=== PATIENT | female | born 2000 | race Caucasian/White ===

== ENCOUNTER 2024-10-26 20:33 | Outpatient (CLI) | payer OTHER, SELFPAY ==
--- OUTSIDE RECORDS SUMMARY | 2024-10-26 20:58 | XMS_ITS | Data Portability ---
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 Discussed plan. [email or web address] Not available 10/17/2024 09:34:18 Plan of Treatment Reminders Order Date Submit Date Provider Last Modified By Organization Details Last Modified Time Details Appointments OB ROUTINE 2024 09:00A Krishna Romeo CNM Not available Not available Not available Lab None recorded. Referral None recorded. Procedures None recorded. Surgeries None recorded. Imaging US, obstetric , follow-up 2024 025 [email or web address] [place], [address], [place], [address], 09/24/2024 19:02:19 US, obstetric , 2nd or 3rd trimester 2024 025 [email or web address] [address], [address], [place], [address], 08/26/2024 23:00:35 Medication Orders None recorded. Patient TargetsNo targets recorded. Patient InstructionsNo instructions recorded. Reason for Referral None Reported. Results Created Date Observation Date Name Description Value Unit Range Abnormal Flag Note LastModifiedBy Organization Detail LastModifiedTime 08/05/1908/05/2024 CULTU RE: URINE result report SEE RESULT S BELOW abnormal Test: Cultu re: Urine Speci men Sourc e: Urine - Clean Catch Speci men Type: Urine Speci men Date: 1656 Resul t Date: 719 Resul t Statu s: Final resul t Rossor mal: Yes Resul victorina Lab: [facility] [address] [facility] [address] Tel: [phone] CULTU RE ----- ----- ----- --- >100, 000 CFU/m l Klebs iella pneum oniae (Abno rmal) SUSCE PTIBI LITY ----- ----- ----- --- Klebs iella pneum oniae METHO D FRANK ----- ----- ----- ----- ----- ---- ----- ----- ----- ----- ----- - AMPIC ILLIN /SULB ACTAM <=8 ug/mL Susce ptibl e AZTRE ONAM <=4 ug/mL Susce ptibl e CEFAZ DANIEL <=2 ug/mL Susce ptibl e CEFEP BENY <=2 ug/mL Susce ptibl e CEFTA ZIDIM E <=1 ug/mL Susce ptibl e CEFTR IAXON E <=1 ug/mL Susce ptibl e CIPRO FLOXA ELISE <=0.2 5 ug/mL Susce ptibl e GENTA MICIN <=2 ug/mL Susce ptibl e LEVOF LOXAC IN <=0.5 ug/mL Susce ptibl e MEROP ENEM <=1 ug/mL Susce ptibl e NITRO FURAN TOIN 64 ug/mL Inter media te PIPER ACILL IN/TA ZOBAC GARVIN <=8 ug/mL Susce ptibl e TOBRA MYCIN <=2 ug/mL Susce ptibl e TRIME THOPR IM/MCKEON LFAME THOXA ZOLE <=2 ug/mL Susce ptibl e Not Available [facility] (Lab) [address] [facility], [place], [address], 08/08/2024 08:24:37 10/18/19 25 10/17/2024 HEMOG LOBIN (HGB) HGB 10.5 g/dL (based on docume nted legal sex) 11.6-1 5.4 low Not Available [facility] (Lab) [address] [facility], [place], [address], 10/18/2024 13:46:06 10/18/19 25 10/17/2024 HEMAT OCRIT (HCT) HCT 33.6 % (based on docume nted legal sex) 34.0-4 5.0 low Not Available [facility] (Lab) [address] [facility], [place], [address], 10/18/2024 13:46:06 10/18/19 25 10/17/2024 GTT - GESTA MARJAN L SCREHumberto N, ACOG OB glucose, 1 hour screen 101 mg/dL 70-135 Not Available [facility] (Lab) [address] [facility], [place], [address], 10/18/2024 13:46:07 10/18/19 25 10/17/2024 HIV 1/2 ANTIG EN/AN TIBOD Y, REFLE X CONFI RMATI ON HIV antigen/anti body Nonrea ctive nonrea ctive HIV-1 antig en and HIV-1 /HIV- 2 antib odies were not detec shlomo. No labor atory evide nce of HIV infec tion. Not Available [facility] (Lab) [address] [facility], [place], [address], 10/18/2024 13:46:07 10/18/19 25 10/17/2024 RPR SCREE N, REFLE X TITER /CONF IRMAT ION RPR qualitative Nonrea ctive nonrea ctive Not Available [facility] (Lab) [address] [facility], [place], [address], 10/18/2024 13:46:07 08/26/19 25 08/26/2024 US, obste tric, 2nd or 3rd trime ster No observ ation record ed. [email or web address] [place] [address], [place], [address], 08/26/2024 18:25:42 08/26/19 25 08/26/2024 US, obste tric, follo w-up No observ ation record ed. [email or web address] [address], [place], [address], 08/28/2024 11:21:16 09/25/19 25 09/24/2024 US, obste tric, follo w-up No observ ation record ed. [email or web address] [place] [address], [place], [address], 09/24/2024 18:23:30 09/25/1909/24/2024 US, obste tric, follo w-up No observ ation record ed. [email or web address] [address], [place], [address], 09/24/2024 22:23:34 Result Notes None recorded. Problems Name Problem SNOMED Code Status Onset Date Resolution Date Notes Provider Name and Address Organization Details Recorded Time [id number] Active 025 Yoko Ramírez [facility] 09:22:20 Problem Notes None recorded. Procedures Surgical History Date Name Laterality Status Provider Name and Address Organization Details Recorded Time 0 Appendectomy completed Yoko Ramírez [facility] 07/03/2024 15:13:03 Imaging Results Imaging Date Name Status LastModified by Organ atecu health Details LastModified Time 08/26/2024 US, obstetric, 2nd or 3rd trimester completed [address], [place], [address], 08/26/2024 18:25:42 08/26/2024 US, obstetric, follow-up completed [email or web address] [address], [place], [address], 08/28/2024 11:21:16 09/24/2024 US, obstetric, follow-up completed [email or web address] [place] [address], [place], [address], 09/24/2024 18:23:30 09/24/2024 US, obstetric, follow-up completed [email or web address] [address], [place], [address], 09/24/2024 22:23:34 Procedure Notes None recorded. Medical Equipment None Reported. Allergies No known drug allergies Medications Name Sig Start Date Stop Date Status Note LastModified by Organization Details LastModified Time amoxicillin 500 mg capsule TAKE 1 CAPSULE BY MOUTH EVERY 6 HOURS active Not Available Not Available No t Available cephalexin 500 mg capsule TAKE 1 CAPSULE BY MOUTH EVERY 6 HOURS FOR 7 DAYS 08/26 completed Not Available Not Available Not Available cyclobenzapr ine 5 mg tablet TAKE 1 TABLET BY MOUTH THREE TIMES DAILY NEEDED active Not Available Not Available No t Available Vitals Date Recorded Body height Body mass index (BMI) Body weight Systolic blood pressure Diastolic blood pressure Provider Name and Address Organization Details Last Updated DateTime 08/26/2024 160.02 cm 26.7 kg/m2 59888.45 g 127 mm[Hg] 85 mm[Hg] Yoko Ramírez [facility] 18:20:41 Date Recorded Body height Body mass index (BMI) Body weight Systolic blood pressure Diastolic blood pressure Provider Name and Address Organization Details Last Updated DateTime 09/24/2024 160.02 cm 27.4 kg/m2 79402.1 g 126 mm[Hg] 78 mm[Hg] JOSEPHINE Olsen [facility] 17:22:20 Date Recorded Body weight Systolic blood pressure Diastolic blood pressure Provider Name and Address Organization Details Last Updated DateTime 10/17/2024 27601.5563 1 g 121 mm[Hg] 73 mm[Hg] Nayeli Vaughn [facility] 10/17/2024 09:34:54 Social History Question Answer Notes LastModified by Organizat ion Details LastModified Time Do You Have An Advance Directive? No [email or web address] Information not available 07/03/2024 What Is Your Level Of Alcohol Consumption? None Information not available 07/03/2024 Are You Blind Or Do You Have Difficulty Seeing? No Information not available 07/03/2024 What Is Your Level Of Caffeine Consumption? Occasional [email or web address] Information not available 07/03/2024 How Much Tobacco Do You Chew? None [email or web address] Information not available 07/03/2024 In The 14 Days Before Symptom Onset, Have You Had Close Contact With A Laboratory-confir med COVID-19 While That Case Was Ill? No [email or web address] Information not available 07/03/2024 In The 14 Days Before Symptom Onset, Have You Had Close Contact With A Person Who Is Under Investigation For COVID-19 While That Person Was Ill? No [email or web address] Information not available 07/03/2024 Have You Been To An Area Known To Be High Risk For COVID-19? No [email or web address] Information not available 07/03/2024 Are You Deaf Or Do You Have Serious Difficulty Hearing? No [email or web address] Information not available 07/03/2024 What Is The Highest Grade Or Level Of School You Have Completed Or The Highest Degree You Have Received? 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 No [email or web address] Information not available 07/03/2024 Do You Use Protection During Sex? No [email or web address] Information not available 07/03/2024 Do You Use Your Seat Belt Or Car Seat Routinely? Yes Information not available 07/03/2024 Do You Have Smoke And Carbon Monoxide Detectors In Your Home? Yes [email or web address] Information not available 07/03/2024 How Much Tobacco Do You Smoke? No [email or web address] Information not available 07/03/2024 Do You Feel Stressed (tense, Restless, Nervous, Or Anxious, Or Unable To Sleep At Night)? [id number] [email or web address] Information not available 07/03/2024 Do You Use Any Illicit Or Recreational Drugs? No [email or web address] Information not available 07/03/2024 Do You Use Sunscreen Routinely? Yes [email or web address] Information not available 07/03/2024 Have You Used IV Drugs? No [email or web address] Information not available 07/03/2024 Sex: Unknown Functional Status Question Answer Note LastModified by Organizat ion Details LastModified Time Are you able to walk? YESWOREST [email or web address] Information not available 07/03/2024 What is your exercise level? Occasional [email or web address] Information not available 07/03/2024 Mental Status None recorded. Family History Nothing Reported. Medical History No medical history recorded. Gynecological History Statement/Question Response Date of LMP 03/26/2024 Sexually Active? Y On BCP's at Conception? N STIs/STDs N Date of Last Pap Smear Sexual Problems? N Current Control Method LMP Definite Obstetrics History GPAL:G 1 P 0 0 0 0 Past Encounters Encounter ID Performer Location Encounter Start Date Encounter Closed Date Diagnosis/Indication Diagnosis SNOMED-CT Code Diagnosis ICD10 Code Diagnosis Note [id number] Erica Maldonadoortega [place] [address] [address] 07/03/2024 14:12:04 07/03/2024 15:09:33 screening 421542730 Z36.87 Z3A.14 [id number] REY PADRON MD [place] [address] [address] 07/03/2024 14:12:40 07/03/2024 16:15:50 Brief loss of consciousness 93194971 R55 - LOC episode in October, unclear trigger- HOlter and EKG normal per patient, she was told she may have POTS- has not had cards eval yet, referral resent as she is having more dizziness episodes now test positive 089424703 Z32.01 1. Exam today within normal limits.2. Ultrasound today confirms GA and viability. EDC . GC/Clamydi a testing done: will f/u as indicated. 4. ACOG guidelines and plan of care for reviewed with patient. All questions answered.5 . Return to office at 12 weeks for new OB visit6. Will need new OB labs at next visit.7. Genetic screening: desires. screening 2437 27937 Z36.0 Genetic in vestigation procedure 10945121 Z31.430 [id number] Erica Costa [place] [address],[place] [address] 07/22/2024 17:13:39 07/22/2024 17:34:11 [id number] REY PADRON MD [place] [address] [address] 07/22/2024 17:14:17 07/31/2024 13:50:57 Routine care 195382848 Z34.01 [id number] REY PADRON MD [place] [address],[place] [address] 08/05/2024 11:27:25 08/05/2024 12:52:33 Right flank pain 411394303 R10.9 - ddx: MSK vs UTI/pyelo- mild CVA tenderness - urine culture sent- flexeril and tylenol for pain relief; keflex for empiric UTI coverage [id number] [facility] [address],[place] [address] 08/26/2024 17:12:37 08/27/2024 06:02:25 screening for malformation 716243603 Z36.3 Z3A.21 [id number] REY PADRON MD [place] [address],[place] [address] 08/26/2024 17:12:58 08/27/2024 04:08:08 Routine care 604286338 Z34.01 [id number] [facility] [address],[place] [address] 09/24/2024 16:38:32 09/24/2024 17:19:30 screening 026403825 Z36.2 Z3A.26 [id number] REY PADRON MD [place] [address],[place] [address] 09/24/2024 16:39:33 09/25/2024 08:37:55 Routine care 591478431 Z34.01 [id number] Bryon Mensah MD [place] [address] [address] 10/17/2024 09:13:00 10/17/2024 09:59:40 Third trimester 42815572 Z34.03 Health Concerns Section Related Observation LastModified by Organization Detai ls LastModified Time None Recorded Concern Status LastModified by Organization Details LastModified Time None Recorded Advance Directives Directive N: Payers Encounter Date Sequence Insurance Name Policy Number Policy Reid Covered Member ID Reid Member ID Guarantor Name 08/26/2024 1 [facility] [id number] Supriya Marcano [id number] Supriya Marcano 08/26/2024 1 [facility] [id number] Supriya Marcano [id number] Supriya Marcano 09/24/2024 1 [facility] [id number] Supriya Marcano [id number] Supriya Marcano 09/24/2024 1 [facility] [id number] Supriya Marcano [id number] Supriya Marcano 10/17/[address] [place] [address] [id number] Supriya Marcano [id number] Supriya Marcano OBGyn Episode Ob Episode Information Episode Created Date Number of Fetuses Patient Bloodtype Patient rh Status Prepregnancy Weight lbs Domestic Partner Domestic Partner Phone Father Name 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 07/23/19 1 AB Positive OPEN Fetus Data First Name Last Name Admitted to NICU Weight (g) Sex Living Outcome Pediatric Complications Fetus ID Race Codes Race Delivery Type [id number] Elias Calculation Initial Elias Date Initial Exam Date Initial Exam Provider Initial Ultrasound Date Last Menstrual Period Date Ultra Sound Weeks Gestation 12/31/2024 07/23/2024 07/03/2024 03/26/2024 14 Eighteen To Twenty Week Elias Update Ultra Sound Date Fundal Height At Umbil Quickening Date Ultra Sound Latest Weeks Gestation Final Elias Confirmed By Final Elias Confirmed Date Final Elias Date Ultra Sound Latest Days Gestation 0 [email or web address] 08/26/2024 01/01/20 0 Pre- Flowsheet Flowsheet Date 08/05/2024 Stone Score Blood Edema Fundus Height Fundus Units Glucose Ketones Leukocytes Nitrite Labor Signs Protein Cervic Dilation Cervic Effacement Cervic Station Type Weight in lbs Pre/Post Dialysis Refused Weight 142.082319669865 BP Diastolic BP Location Tested BP Systolic BP Type 77 L arm 127 sitting Fetus Heart Rate Present Fetus Movement Comments Problem visit, right sided b ack pain. Flowsheet Date 08/26/2024 Stone Score Blood Edema Fundus Height Fundus Units Glucose Ketones Leukocytes Nitrite Labor Signs Protein Cervic Dilation Cervic Effacement Cervic Station Type Weight in lbs Pre/Post Dialysis Refused BP Diastolic BP Location Tested BP Systolic BP Type Fetus Heart Rate Present Fetus Movement Comments Flowsheet Date 08/26/2024 Stone Score Blood Edema Fundus Height Fundus Units Glucose Ketones Leukocytes Nitrite Labor Signs Protein Cervic Dilation Cervic Effacement Cervic Station neg none Type Weight in lbs Pre/Post Dialysis Refused Weight 151.560667225708 BP Diastolic BP Location Tested BP Systolic BP Type 85 L arm 127 sitting Fetus Heart Rate Present A Present Fetus Movement A Yes Comments Good movement. No cram ping or bleeding. UTI symptoms resolved after abx. Will send DAVID next visit. Anatomy incomplete, need head/face views. Will repeat in 4 weeks. EFW 53%. RTC 4 weeks. Flowsheet Date 09/24/2024 Stone Score Blood Edema Fundus Height Fundus Units Glucose Ketones Leukocytes Nitrite Labor Signs Protein Cervic Dilation Cervic Effacement Cervic Station Type Weight in lbs Pre/Post Dialysis Refused BP Diastolic BP Location Tested BP Systolic BP Type Fetus Heart Rate Present Fetus Movement Comments Flowsheet Date 09/24/2024 Stone Score Blood Edema Fundus Height Fundus Units Glucose Ketones Leukocytes Nitrite Labor Signs Protein Cervic Dilation Cervic Effacement Cervic Station neg none Type Weight in lbs Pre/Post Dialysis Refused Weight 154.834841189779 BP Diastolic BP Location Tested BP Systolic BP Type 78 126 sitting Fetus Heart Rate Present A Present Fetus Movement A Yes Comments Doing well, good movem ent. Anatomy complete and normal today, EFW 61%. Discussed resources and pumping. RTC 2 weeks, discussed GCT and labs for next visit. Flowsheet Date 10/17/2024 Stone Score Blood Edema Fundus Height Fundus Units Glucose Ketones Leukocytes Nitrite Labor Signs Protein Cervic Dilation Cervic Effacement Cervic Station 29 cm Type Weight in lbs Pre/Post Dialysis Refused 163.659725183590 BP Diastolic BP Location Tested BP Systolic BP Type 73 L arm 121 sitting Fetus Heart Rate Present A 145 Present Fetus Movement A Yes Comments no complaints, no problems, routine care, no contractions, no vaginal bleeding, no loss of fluid, no cramping Menstrual History Last Menstrual Date Menses Monthly On Bcp Conception Prior Menses Frequency Hcg Plus Date Menarche Onset Age 0903/26/2024 Delivery Information Delivery Date Delivery Type Labor Anesthesia Weeks Gestation Incision Type Labor Labor Length Hrs Delivered By Post Complications Tubal Sterilization Discharge Date Comments Discharge Information Feeding Method Contraceptive Method Maternal HG B and HCT Levels
[2024-10-26 21:12] LABS: Glucose Point of Care 103 mg/dl (65-105)
[2024-10-26 21:15] VITALS: BP 127/74; PULSE 77
[2024-10-26 21:30] VITALS: BP 124/73; PULSE 80
[2024-10-26 21:55] LABS: Add Urine Microscopic? NO; Appearance Urine Clear (Clear); Bilirubin Urine Negative (Negative); Blood Urine Negative (Negative); Color Urine Yellow (Yellow); Glucose Urine UA Negative (Negative); Ketones Urine Negative (Negative); Leukocyte Esterase Ur Negative LEU/UL (Negative); Nitrate Urine Negative (Negative); Protein Urine Negative (Negative); Specific Grav Ur 1.005 (1.001-1.035); Urobilinogen Urine 0.2 mg/dL (<2.0); pH Urine 6.5 (5.0-9.0)
[2024-10-26 22:00] VITALS: BP 126/66; PULSE 79
[2024-10-26 22:13] LABS: Hematocrit 29.2 % (37.0-47.0); Hemoglobin 9.7 g/dL (12.0-15.0); Mean Corpuscular HGB Conc 33.2 g/dl (32-36); Mean Corpuscular Volume 93.3 fl (80-100); Platelet Count Result 174 k/mm3 (150-375); Red Blood Count 3.13 M/mm3 (4.2-5.4); White Blood Count 10.9 K/mm3 (4.5-10.0)
[2024-10-26 22:25] LABS: Alanine Aminotransferase 17 U/L (6-35); Albumin Level 3.6 g/dL (3.5-5.1); Alkaline Phosphatase 70 U/L (38-126); Anion Gap 7 mmol/L (4-12); Aspartate Amino Transferase 20 U/L (14-36); Bilirubin,Total 0.2 mg/dL (0.2-1.3); Blood Urea Nitrogen 8 mg/dL (7-17); Calcium 8.7 mg/dL (8.4-10.2); Carbon Dioxide 22 mmol/L (22-30); Chloride 106 mmol/L (98-107); Estimated Glomerular Filt Rate > 60; Glucose 102 mg/dL (65-110); Potassium 3.5 mmol/L (3.4-5.0); Sodium 135 mmol/L (137-145)
[2024-10-26 22:30] VITALS: BP 117/61; PULSE 72
== END 2024-10-26 22:40 | disposition home or self-care (01) ==
LOC: ANHOBOP 20:56 → ANHLDR 21:03
PROVIDERS: Advanced Practice Midwife; Visit Provider Obstetrics & Gynecology
DX: O36.8190 Decreased fetal movements, unspecified trimester, not applicable or unspecified (principal); Z3A.00 Weeks of gestation of pregnancy not specified
CPT/HCPCS: 36415; 59025; 80053; 81003; 82948; 85027

== ENCOUNTER 2024-10-31 09:21 | Outpatient (CLI) | payer OTHER, SELFPAY ==
[2024-10-31] VITALS (14 sets, daily range): BP systolic 112–127; BP diastolic 56–79; PULSE 63–102; O2SAT 99–100
[2024-10-31 09:49] LABS: Basophils Percent Auto 0.3 % (0.2-1.2); Eosinophils Absolute Auto 0.1 K/mm3 (0-0.3); Eosinophils Percent Auto 1.2 % (0-4.4); Hematocrit 33.9 % (37.0-47.0); Hemoglobin 11.1 g/dL (12.0-15.0); Immature Granulocyte Absolute 0.07 K/mm3 (0.00-0.031); Immature Granulocyte Percent A 0.7 % (0-0.5); Lymphocytes Absolute Auto 1.42 K/mm3 (0.9-3.2); Lymphocytes Percent Auto 13.3 % (18.3-44.2); Mean Corpuscular HGB Conc 32.7 g/dl (32-36); Mean Corpuscular Hemoglobin 30.6 pg (26-34); Mean Corpuscular Volume 93.4 fl (80-100); Mean Platelet Volume 10.5 fl (7.4-10.4); Monocytes Absolute Auto 0.8 K/mm3 (0.1-0.6); Neutrophils Absolute Auto 8.2 K/mm3 (1.3-6.7); Neutrophils Percent Auto 77.5 % (45.5-73.1); Platelet Count Result 178 k/mm3 (150-375); Red Blood Count 3.63 M/mm3 (4.2-5.4); Red Cell Distribution Width 12.1 % (11.5-14.5); White Blood Count 10.6 K/mm3 (4.5-10.0)
[2024-10-31 10:00] LABS: Add Urine Microscopic? NO; Appearance Urine Clear (Clear); Bilirubin Urine Negative (Negative); Blood Urine Negative (Negative); Color Urine Yellow (Yellow); Glucose Urine UA Negative (Negative); Ketones Urine Negative (Negative); Leukocyte Esterase Ur Negative LEU/UL (Negative); Nitrate Urine Negative (Negative); Protein Urine Negative (Negative); Specific Grav Ur 1.007 (1.001-1.035); Urobilinogen Urine 0.2 mg/dL (<2.0)
--- NOTE | 2024-10-31 10:14 | PC.NURSE ---
1010- Spoke with David Romeo CNM, discussed contractions. Orders for one dose of terbutaline and one dose of fioricet for her headache.
[2024-10-31] MEDS: TERBUTALINE SULFATE 1 MG/ML VIAL 0.25 MG SUB-Q (10:41)
[2024-10-31] MEDS: ACETAMINOPHEN/BUTALBITAL/CAFFEINE 325-50-40 MG TABLET (FIORICET) 1 TAB PO (10:42)
[2024-10-31 10:47] LABS: Creatinine Urine 32.9 mg/dL; Total Protein Urine Random 11 mg/dL; Ur Ttl Prot Creatinine Ratio 0.33 mg/mg (0-0.20)
[2024-10-31 11:07] LABS: Blood Urea Nitrogen 4 mg/dL (7-17); Estimated Glomerular Filt Rate > 60; Sodium 134 mmol/L (137-145)
[2024-10-31 11:22] LABS: Anion Gap 10 mmol/L (4-12); Carbon Dioxide 17 mmol/L (22-30); Chloride 107 mmol/L (98-107); Potassium 4.1 mmol/L (3.4-5.0)
[2024-10-31 11:23] LABS: Alanine Aminotransferase 19 U/L (6-35); Albumin Level 3.8 g/dL (3.5-5.1); Alkaline Phosphatase 80 U/L (38-126); Aspartate Amino Transferase 27 U/L (14-36); Bilirubin,Total 0.3 mg/dL (0.2-1.3); Calcium 8.8 mg/dL (8.4-10.2); Glucose 79 mg/dL (65-110); Uric Acid 3.2 mg/dL (2.5-7.5)
--- OUTSIDE RECORDS SUMMARY | 2024-11-01 11:32 | XMS_ITS | Continuity of Care Document ---
Author Organization [facility] Address [address] [place] [address] Care Team Providers Care Junior Financial Analyst Name Role Phone NOAH NARAYANAN Primary Care Provider [phone] Assessment Encounter Date Assessment Date Assessment LastModified by Organization Details LastModified Time 10/31/2024 10/31/2024 Patient is __31_weeks . Discussed plan. Not available 10/31/2024 10:01:21 Plan of Treatment Reminders Order Date Submit Date Provider Last Modified By Organization Details Last Modified Time Details Appointments None record ed. Lab None record ed. Referral None record ed. Procedures None record ed. Surgeries None record ed. Imaging None record ed. Medication Orders None record ed. Patient TargetsNo targets recorded. Patient InstructionsNo instructions recorded. Reason for Referral None Reported. Results Created Date Observation Date Name Description Value Unit Range Abnormal Flag Note LastModifiedBy Organization Detail LastModifiedTime 08/26/1908/26/2024 US, obste tric, 2nd or 3rd trime ster No observ ation record ed. [email or web address] [facility] [address], [place], [address], 08/26/2024 18:25:42 08/26/19 25 08/26/2024 US, obste tric, follo w-up No observ ation record ed. [email or web address] [address], [place], [address], 08/28/2024 11:21:16 09/25/19 25 09/24/2024 US, obste tric, follo w-up No observ ation record ed. [email or web address] [facility] [address], [place], [address], 09/24/2024 18:23:30 09/25/19 25 09/24/2024 US, obste tric, follo w-up No observ ation record ed. [email or web address] [address] [address], [place], [address], 09/24/2024 22:23:34 10/28/19 25 10/26/2024 non-s tress test No observ ation record ed. [address], [place], [address], 10/31/2024 14:53:20 11/01/19 25 10/31/2024 imagi ng/di agnos tic resul t No observ ation record ed. [place] [id number] [facility] [address], [place], [address], 11/01/2024 12:13:23 Result Notes None recorded. Problems Name Problem SNOMED Code Status Onset Date Resolution Date Notes Provider Name and Address Organization Details Recorded Time 24438620 Active 025 Yoko Ramírez [facility] 5 09:22:20 Anemia 312033965 Active 025 slo fe bid Prerna Khadar [facility] 5 10:16:41 Problem Notes None recorded. Procedures Surgical History Date Name Laterality Status Provider Name and Address Organization Details Recorded Time 0 Appendectomy completed Yoko Ramírez [facility] 07/03/2024 15:13:03 Imaging Results None recorded. Procedure Notes None recorded. Medical Equipment None Reported. Allergies No known drug allergies Medications Name Sig Start Date Stop Date Status Note LastModified by Organization Details LastModified Time amoxicillin 500 mg capsule TAKE 1 CAPSULE BY MOUTH EVERY 6 HOURS 10/31 completed Not Available Not Available Not Available cephalexin 500 mg capsule TAKE 1 CAPSULE BY MOUTH EVERY 6 HOURS FOR 7 DAYS 08/26 completed Not Available Not Available Not Available cyclobenzapr ine 5 mg tablet TAKE 1 TABLET BY MOUTH THREE TIMES DAILY NEEDED 10/31 completed Not Available Not Available Not Available Vitals Date Recorded Body mass index (BMI) Body weight Body height Systolic blood pressure Diastolic blood pressure Provider Name and Address Organization Details Last Updated DateTime 10/31/2024 29.2 kg/m2 69588.74 g 160.02 cm 143 mm[Hg] 87 mm[Hg] Becky Scruggs [facility] 09:58:25 Social History Question Answer Notes LastModified by Organizat ion Details LastModified Time Tobacco Smoking Status Never Smoker Becky Scruggs [facility] 10/31/2024 10:09:34 Do You Have An Advance Directive? No [email or web address] Information not available 07/03/2024 What Is Your Level Of Alcohol Consumption? None [email or web address] Information not available 07/03/2024 If You Are , What Was Your Level Of Alcohol Consumption Prior To ? Occasional [email or web address] Information not available 10/31/2024 Are You Blind Or Do You Have Difficulty Seeing? No [email or web address] Information not available 07/03/2024 What Is Your Level Of Caffeine Consumption? Occasional [email or web address] Information not available 07/03/2024 How Much Tobacco Do You Chew? None [email or web address] Information not available 07/03/2024 In The 14 Days Before Symptom Onset, Have You Had Close Contact With A Laboratory-confir med COVID-19 While That Case Was Ill? No [email or web address] Information not available 07/03/2024 In The 14 Days Before Symptom Onset, Have You Had Close Contact With A Person Who Is Under Investigation For COVID-19 While That Person Was Ill? No Information not available 07/03/2024 Have You Been To An Area Known To Be High Risk For COVID-19? No [email or web address] Information not available 07/03/2024 Are You Deaf Or Do You Have Serious Difficulty Hearing? No [email or web address] Information not available 07/03/2024 What Is The Highest Grade Or Level Of School You Have Completed Or The Highest Degree You Have Received? 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 No [email or web address] Information not available 07/03/2024 Do You Use Protection During Sex? No [email or web address] Information not available 07/03/2024 Do You Use Your Seat Belt Or Car Seat Routinely? Yes [email or web address] Information not available 07/03/2024 Do You Have Smoke And Carbon Monoxide Detectors In Your Home? Yes Information not available 07/03/2024 How Much Tobacco Do You Smoke? No [email or web address] Information not available 07/03/2024 Do You Feel Stressed (tense, Restless, Nervous, Or Anxious, Or Unable To Sleep At Night)? [id number] [email or web address] Information not available 07/03/2024 Do You Use Any Illicit Or Recreational Drugs? No [email or web address] Information not available 07/03/2024 Do You Use Sunscreen Routinely? Yes [email or web address] Information not available 07/03/2024 Have You Used IV Drugs? No [email or web address] Information not available 07/03/2024 Sex: Unknown Functional Status Question Answer Note LastModified by Organizat ion Details LastModified Time Do you have difficulty walking or climbing stairs? No [email or web address] Information not available 10/31/2024 Are you able to walk? YESWOREST [email or web address] Information not available 07/03/2024 Are you able to care for yourself? Yes [email or web address] Information not available 10/31/2024 Do you have difficulty dressing or bathing? No Information not available 10/31/2024 What is your exercise level? Occasional [email or web address] Information not available 07/03/2024 Mental Status None recorded. Family History Nothing Reported. Medical History Condition Response Allergies (Food, seasonal, environmental ) N Other N Breast Cancer N Drug/Latex Allergies/Reactions N Blood Transfusion N Dermatologic Disorders N Lung Disease N Defects or Inherited Disease N Breast Problem N Gestational Diabetes N Hematologic disorders N Anesthesia Complications N History of STI N Deep Vein Thrombosis N Polycystic ovary syndrome N Anxiety Disorder N Autoimmune disease N Arthritis N Infertility N Polyps N Acid Reflux (GERD) N History of abnormal pap N Cancer N Stroke N Varicosities N Neurologic/Epilepsy N Endometriosis N High Cholesterol N Headaches N Fibromyalgia N Kidney Disease N Heart Problems N Kidney or Bladder Problems N Thyroid Problems N GI Problems N Eating Disorder N Anemia Y Art (IVF or FET) N Psychiatric Illness N Ovarian Cancer N Diabetes N Pulmonary (TB, Asthma) N Hepatitis/Liver Disease N No Past Medical History N Eczema N Urinary Tract Infection N Abuse/Domestic Violence N Asthma N Trauma/Violence N Depression/ depression N Heart Disease N Pre-Eclampsia N Hypertension N Osteoporosis N Thrombophilias N Gynecological History Statement/Question Response Date of Last Mammogram Date of Last Colonoscopy Date of LMP 03/26/2024 Sexually Active? Y On BCP's at Conception? N Date of DEXA bone scan STIs/STDs N Date of Last Pap Smear Sexual Problems? N Current Control Method LMP Definite Obstetrics History GPAL:G 1 P 0 0 0 0 Type Value Living 0 Total 1 Past Encounters Encounter ID Performer Location Encounter Start Date Encounter Closed Date Diagnosis/Indication Diagnosis SNOMED-CT Code Diagnosis ICD10 Code Diagnosis Note [id number] Bryon Mensah MD [facility] [address] [address] 10/17/2024 09:13:00 10/17/2024 09:59:40 Third trimester 09938651 Z34.03 [id number] [facility] [address] [address] 10/31/2024 09:50:16 10/31/2024 10:12:01 Gestation period, 31 weeks 39613077 Z3A.31 Health Concerns Section Related Observation LastModified by Organization Detai ls LastModified Time None Recorded Concern Status LastModified by Organization Details LastModified Time None Recorded Payers Encounter Date Sequence Insurance Name Policy Number Policy Reid Covered Member ID Reid Member ID Guarantor Name 10/31/2024 1 [facility] [id number] Supriya Marcano [id number] Supriya Marcano OBGyn Episode Ob Episode Information Episode Created Date Number of Fetuses Patient Bloodtype Patient rh Status Prepregnancy Weight lbs Domestic Partner Domestic Partner Phone Father Name National Account Executive Status 07/23/19 25 1 AB Positive OPEN Fetus Data First Name Last Name Admitted to NICU Weight (g) Sex Living Outcome Pediatric Complications Fetus ID Race Codes Race Delivery Type [id number] Problems Problem Notes Problem Name Start Date End Date Resolution Snomed Code Not e Anemia 10/28/2024 [id number] slo fe bi d Elias Calculation Initial Elias Date Initial Exam [...] Date Ultra Sound Latest Days Gestation 0 [email or web address] 08/26/2024 01/01/20 25 0 Pre- Flowsheet Flowsheet Date 08/05/2024 Stone Score Blood Edema Fundus Height Fundus Units Glucose Ketones Leukocytes Nitrite Labor Signs Protein Cervic Dilation Cervic Effacement Cervic Station Type Weight in lbs Pre/Post Dialysis Refused Weight 142.094302045776 BP Diastolic BP Location Tested BP Systolic [...] Weight in lbs Pre/Post Dialysis Refused Weight 151.596497171650 BP Diastolic BP Location Tested BP Systolic [...] Weight in lbs Pre/Post Dialysis Refused Weight 154.011572812160 BP Diastolic BP Location Tested BP Systolic [...] Type Weight in lbs Pre/Post Dialysis Refused 163.568523228089 BP Diastolic BP Location Tested BP Systolic BP Type 73 L arm 121 sitting Fetus Heart Rate Present A 145 Present Fetus Movement A Yes Comments no complaints, no problems, routine care, no contractions, no vaginal bleeding, no loss of fluid, no cramping Flowsheet Date 10/31/2024 Stone Score Blood Edema Fundus Height Fundus Units Glucose Ketones Leukocytes Nitrite Labor Signs Protein Cervic Dilation Cervic Effacement Cervic Station neg trace Type Weight in lbs Pre/Post Dialysis Refused Weight 165.756505274215 BP Diastolic BP Location Tested BP Systolic BP Type 87 143 Fetus Heart Rate Present Fetus Movement A Yes Comments Patient is having lightheade d, dizziness, contractions, headache, swelling and nausea. to ld for evaluation, +FM , sign up for preadmit Menstrual History Last Menstrual Date Menses Monthly [...]
--- OUTSIDE RECORDS SUMMARY | 2024-11-01 11:32 | XMS_ITS | Data Portability ---
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 Discussed plan. [email or web address] Not available 10/17/2024 09:34:18 10/31/2024 10/31/2024 Patient is __31_weeks . Discussed plan. [email or web address] Not available 10/31/2024 10:01:21 Plan of Treatment Reminders Order Date Submit Date Provider Last Modified By Organization Details Last Modified Time Details Appointments None recorded. Lab None recorded. Referral None recorded. Procedures None recorded. Surgeries None recorded. Imaging US, obstetric, follow-up 2024 025 [email or web address] [place], [place], [address], 19:02:19 US, obstetric, 2nd or 3rd trimester 2024 025 [email or web address] [facility] [place], [address], [place], [address], 23:00:35 Medication Orders None recorded. Patient TargetsNo [...] Speci men Date: 1656 Resul t Date: 0720 Resul t Statu s: Final resul t Abnor mal: Yes Resul victorina Lab: [facility] [address] [facility] [address] Tel: CULTU RE ----- ----- ----- --- >100, [...] <=2 ug/mL Susce ptibl e Not Available [facility] (Lab) [address], [place], [address], 08/08/2024 08:24:37 10/18/1910/17/2024 HEMOG LOBIN (HGB) HGB 10.5 g/dL (based on docume nted legal sex) 11.6-1 5.4 low Not Available [facility] (Lab) [address], [place], [address], 10/18/2024 13:46:06 10/18/19 25 10/17/2024 HEMAT OCRIT (HCT) HCT 33.6 % (based on docume nted legal sex) 34.0-4 5.0 low Not Available [facility] (Lab) [address], [place], [address], 10/18/2024 13:46:06 10/18/19 25 10/17/2024 GTT - GESTA MARJAN L RUTH Zhang, ACOG OB glucose, 1 hour screen 101 mg/dL 70-135 Not Available [facility] (Lab) [address] [place], [address], 10/18/2024 13:46:07 10/18/1910/17/2024 HIV 1/2 ANTIG EN/AN TIBOD Y, REFLE X CONFI RMATI ON HIV antigen/anti body Nonrea ctive nonrea ctive HIV-1 antig en and HIV-1 /HIV- 2 antib odies were not detec shlomo. No labor atory evide nce of HIV infec tion. Not Available [facility] (Lab) [address], [place], [address], 10/18/2024 13:46:07 10/18/1910/17/2024 RPR SCREE N, REFLE X TITER /CONF IRMAT ION RPR qualitative Nonrea ctive nonrea ctive Not Available [facility] (Lab) [address] [place], [address], 10/18/2024 13:46:07 08/26/19 25 08/26/2024 US, obste tric, 2nd or 3rd trime ster No observ ation record ed. [email or web address] [facility] [address], [place], [address], 08/26/2024 18:25:42 08/26/19 25 08/26/2024 US, obste tric, follo w-up No observ ation record ed. [email or web address] [address], [place], [address], 08/28/2024 11:21:16 09/25/19 25 09/24/2024 US, obste tric, follo w-up No observ ation record ed. [email or web address] [facility] [address], [place], [address], 09/24/2024 18:23:30 09/25/19 25 09/24/2024 US, obste tric, follo w-up No observ ation record ed. [email or web address] [address], [place], [address], 09/24/2024 22:23:34 10/28/19 25 10/26/2024 non-s tress test No observ ation record ed. [address], [place], [address], 10/31/2024 14:53:20 11/01/19 25 10/31/2024 imagi ng/di agnos tic resul t No observ ation record ed. [address] [facility] [address], [place], [address], 11/01/2024 12:13:23 Result Notes None recorded. Problems Name Problem SNOMED Code Status Onset Date Resolution Date Notes Provider Name and Address Organization Details Recorded Time 74069910 Active 025 Yoko anderson [place] - [facility] 09:22:20 Anemia 208514120 Active 025 slo fe bid Prerna Rubalcava [facility], [facility] 10:16:41 Problem Notes None recorded. Procedures Surgical History Date Name Laterality Status Provider Name and Address Organization Details Recorded Time 0 Appendectomy completed Yoko Ramírez [facility] 07/03/2024 15:13:03 Imaging Results Imaging Date Name Status LastModified by Organiz ation Details LastModified Time 08/26/2024 US, obstetric, 2nd or 3rd trimester completed [email or web address] [place] [address], [place], [address], 08/26/2024 18:25:42 08/26/2024 US, obstetric, follow-up completed [email or web address] [address], [place], [address], 08/28/2024 11:21:16 09/24/2024 US, obstetric, follow-up completed [email or web address] [place] [address], [place], [address], 09/24/2024 18:23:30 09/24/2024 US, obstetric, follow-up completed [address], [place], [address], 09/24/2024 22:23:34 10/26/2024 non-stress test active [address], [address], 10/31/2024 14:53:20 10/31/2024 imaging/diagno stic result active [address], [address], 11/01/2024 12:13:23 Procedure Notes None recorded. Medical Equipment None Reported. Allergies No known drug allergies Medications Name Sig Start Date Stop Date Status Note LastModified by Organization Details LastModified Time amoxicillin 500 mg capsule TAKE 1 CAPSULE BY MOUTH EVERY 6 HOURS 05/02 /2025 completed Not Available Not Available Not Available cephalexin 500 mg capsule TAKE 1 CAPSULE BY MOUTH EVERY 6 HOURS FOR 7 DAYS 08/26 completed Not Available Not Available Not Available cyclobenzapr ine 5 mg tablet TAKE 1 TABLET BY MOUTH THREE TIMES DAILY NEEDED 10/31 completed Not Available Not Available Not Available Vitals Date Recorded Body height Body mass index (BMI) Body weight Systolic blood pressure Diastolic blood pressure Provider Name and Address Organization Details Last Updated DateTime 08/26/2024 160.02 cm 26.7 kg/m2 77496.45 g 127 mm[Hg] 85 mm[Hg] Yoko Desiree [facility] 18:20:41 Date Recorded Body height Body mass index (BMI) Body weight Systolic blood pressure Diastolic blood pressure Provider Name and Address Organization Details Last Updated DateTime 09/24/2024 160.02 cm 27.4 kg/m2 50222.1 g 126 mm[Hg] 78 mm[Hg] JOSEPHINE Pretty [facility] 17:22:20 Date Recorded Body weight Systolic blood pressure Diastolic blood pressure Provider Name and Address Organization Details Last Updated DateTime 10/17/2024 98214.5563 1 g 121 mm[Hg] 73 mm[Hg] Nayeli Roderick [facility] 10/17/2024 09:34:54 Date Recorded Body mass index (BMI) Body weight Body height Systolic blood pressure Diastolic blood pressure Provider Name and Address Organization Details Last Updated DateTime 10/31/2024 29.2 kg/m2 61881.74 g 160.02 cm 143 mm[Hg] 87 mm[Hg] Becky Scruggs [facility] 09:58:25 Social History Question Answer Notes LastModified by Organizat ion Details LastModified Time Tobacco Smoking Status Never Smoker Becky Scruggs [facility] 10/31/2024 10:09:34 Do You Have An Advance Directive? No Information not available 07/03/2024 What Is Your Level Of Alcohol Consumption? None [email or web address] Information not available 07/03/2024 If You Are , What Was Your Level Of Alcohol Consumption Prior To ? Occasional [email or web address] Information not available 10/31/2024 Are You Blind Or Do You Have Difficulty Seeing? No Information not available 07/03/2024 What Is Your Level Of Caffeine Consumption? Occasional [email or web address] Information not available 07/03/2024 How Much Tobacco Do You Chew? None [email or web address] Information not available 07/03/2024 In The 14 Days Before Symptom Onset, Have You Had Close Contact With A Laboratory-confir med COVID-19 While That Case Was Ill? No [email or web address] Information not available 07/03/2024 In The 14 Days Before Symptom Onset, Have You Had Close Contact With A Person Who Is Under Investigation For COVID-19 While That Person Was Ill? No [email or web address] Information not available 07/03/2024 Have You Been To An Area Known To Be High Risk For COVID-19? No Information not available 07/03/2024 Are You Deaf Or Do You Have Serious Difficulty Hearing? No [email or web address] Information not available 07/03/2024 What Is The Highest Grade Or Level Of School You Have Completed Or The Highest Degree You Have Received? 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 No [email or web address] Information not available 07/03/2024 Do You Use Protection During Sex? No [email or web address] Information not available 07/03/2024 Do You Use Your Seat Belt Or Car Seat Routinely? Yes [email or web address] Information not available 07/03/2024 Do You Have Smoke And Carbon Monoxide Detectors In Your Home? Yes [email or web address] Information not available 07/03/2024 How Much Tobacco Do You Smoke? No Information not available 07/03/2024 Do You Feel Stressed (tense, Restless, Nervous, Or Anxious, Or Unable To Sleep At Night)? [id number] Information not available 07/03/2024 Do You Use Any Illicit Or Recreational Drugs? No [email or web address] Information not available 07/03/2024 Do You Use Sunscreen Routinely? Yes [email or web address] Information not available 07/03/2024 Have You Used IV Drugs? No [email or web address] Information not available 07/03/2024 Sex: Unknown Functional Status Question Answer Note LastModified by Organizat ion Details LastModified Time Do you have difficulty walking or climbing stairs? No [email or web address] Information not available 10/31/2024 Are you able to walk? YESWOREST [email or web address] Information not available 07/03/2024 Are you able to care for yourself? Yes [email or web address] Information not available 10/31/2024 Do you have difficulty dressing or bathing? No [email or web address] Information not available 10/31/2024 What is your exercise level? Occasional [email or web address] Information not available 07/03/2024 Mental Status None [...] SNOMED-CT Code Diagnosis ICD10 Code Diagnosis Note [id number] Bryon Mensah MD [place] [address] [address] 07/03/2024 14:12:04 07/03/2024 15:09:33 screening 589274713 Z36.87 Z3A.14 [id number] REY PADRON MD [place] [address] [address] 07/03/2024 14:12:40 07/03/2024 16:15:50 Brief loss of consciousness 70405804 R55 - LOC episode in October, unclear trigger- HOlter and EKG normal per patient, she was told she may have POTS- has not had cards eval yet, referral resent as she is having more dizziness episodes now test positive 418997176 Z32.01 1. Exam today within normal limits.2. Ultrasound today confirms GA and viability. EDC . GC/Clamydi a testing done: will f/u as indicated. 4. ACOG guidelines and plan of care for reviewed with patient. All questions answered.5 . Return to office at 12 weeks for new OB visit6. Will need new OB labs at next visit.7. Genetic screening: desires. screening 2437 48108 Z36.0 Genetic in vestigation procedure 15358044 Z31.430 [id number] Bryon Mensah MD [place] [facility] [address] [address] 07/22/2024 17:13:39 07/22/2024 17:34:11 [id number] REY PADRON MD [place] [address] [address] 07/22/2024 17:14:17 07/31/2024 13:50:57 Routine care 894808663 Z34.01 [id number] REY PADRON MD [place] [address] [address] 08/05/2024 11:27:25 08/05/2024 12:52:33 Right flank pain 978945110 R10.9 - ddx: MSK vs UTI/pyelo- mild CVA tenderness - urine culture sent- flexeril and tylenol for pain relief; keflex for empiric UTI coverage [id number] Bryon Mensah MD [place] [address] [address] 08/26/2024 17:12:37 08/27/2024 06:02:25 screening for malformation 937531412 Z36.3 Z3A.21 [id number] REY PADRON MD [place] [address] [address] 08/26/2024 17:12:58 08/27/2024 04:08:08 Routine care 883845919 Z34.01 [id number] Bryon Mensah MD [place] [address] [address] 09/24/2024 16:38:32 09/24/2024 17:19:30 screening 982753603 Z36.2 Z3A.26 [id number] REY PADRON MD [place] [address] [address] 09/24/2024 16:39:33 09/25/2024 08:37:55 Routine care 963699899 Z34.01 [id number] Bryon Mensah MD [place] [address] [address] 10/17/2024 09:13:00 10/17/2024 09:59:40 Third trimester 42001668 Z34.03 [id number] [facility] [address] [address] 10/31/2024 09:50:16 10/31/2024 10:12:01 Gestation period, 31 weeks 00966898 Z3A.31 Health Concerns Section Related Observation LastModified by Organization Detai ls LastModified Time None Recorded Concern Status LastModified by Organization Details LastModified Time None Recorded Advance Directives Directive N: Payers Encounter Date Sequence Insurance Name Policy Number Policy Reid Covered Member ID Reid Member ID Guarantor Name 08/26/2024 [facility] [id number] Supriya Marcano [id number] Supriya Marcano 09/24/[address] [place] [address] [id number] Supriya Marcano [id number] Supriya Lanier Marcano 09/24/2024 1 [facility] [id number] Supriya Marcano [id number] Supriya Lanier Marcano 10/17/2024 1 [facility] [id number] Supriya Marcano [id number] Supriya Marcano 10/31/2024 1 [facility] [id number] Supriya Marcano [id number] Supriya Marcano OBGyn Episode Ob Episode Information Episode Created Date Number of Fetuses Patient Bloodtype Patient rh Status Prepregnancy Weight lbs Domestic Partner Domestic Partner Phone Father Name Master Baker Status 07/23/19 1 AB Positive OPEN Fetus Data First Name Last Name Admitted to NICU Weight (g) Sex Living Outcome Pediatric Complications Fetus ID Race Codes Race Delivery Type [id number] Problems Problem Notes Problem Name Start Date End Date Resolution Snomed Code Not e Anemia 10/28/2024 [id number] slo fe bi d Elias Calculation Initial [...] Date Ultra Sound Latest Days Gestation 0 [email or web address] 08/26/2024 01/01/20 0 Pre- Flowsheet Flowsheet Date 08/05/2024 Stone Score Blood Edema Fundus Height Fundus Units Glucose Ketones Leukocytes Nitrite Labor Signs Protein Cervic Dilation Cervic Effacement Cervic Station Type Weight in lbs Pre/Post Dialysis Refused Weight 142.603920813752 BP Diastolic BP Location Tested BP Systolic [...] Weight in lbs Pre/Post Dialysis Refused Weight 151.391859998175 BP Diastolic BP Location Tested BP Systolic [...] Weight in lbs Pre/Post Dialysis Refused Weight 154.144098791737 BP Diastolic BP Location Tested BP Systolic [...] Type Weight in lbs Pre/Post Dialysis Refused 163.872864823185 BP Diastolic BP Location Tested BP Systolic [...] Weight in lbs Pre/Post Dialysis Refused Weight 165.771693233891 BP Diastolic BP Location Tested BP Systolic [...]
== END 2024-10-31 12:05 | disposition home or self-care (01) ==
LOC: ANHOBOP 09:26 → ANHOBPP 09:27
PROVIDERS: PCP Family Medicine; Visit Provider Advanced Practice Midwife
DX: O13.9 Gestational [pregnancy-induced] hypertension without significant proteinuria, unspecified trimester (principal); Z3A.00 Weeks of gestation of pregnancy not specified
CPT/HCPCS: 36415; 59025; 80053; 81003; 82570; 84156; 84550; 85025; 96372; 99199; A9270; J3105

== ENCOUNTER 2024-12-17 12:07 | Inpatient (IN) | payer OTHER, SELFPAY ==
[2024-12-17] VITALS (41 sets, daily range): BP systolic 96–142; BP diastolic 53–101; PULSE 62–93; TEMP 36.6–36.8; BMI 31.6
--- NOTE | 2024-12-17 12:07 | LDADM ---
This patient, Supriya Marcano, was admitted to Labor/Delivery/Recovery 103 on 12/17/24 at 12:07. Plans for labor, pain management and were discussed with patient. Patient/family oriented to hospital policies and general routines including ID bracelet, bed and alarms, visiting hours, pain management, procedures, bathroom and other care routines, personal items, smoking policy, room service/diet and guest tray routines, infant security routines, and visiting hours. Patient/Family are encouraged to report perceived risks to care and to ask questions if they do not understand what they are told or what they should do. See OBIX for further documentation.
[2024-12-17 13:00] LABS: Basophils Percent Auto 0.2 % (0.2-1.2); Eosinophils Absolute Auto 0.1 K/mm3 (0-0.3); Eosinophils Percent Auto 0.8 % (0-4.4); Hematocrit 37.4 % (37.0-47.0); Hemoglobin 12.6 g/dL (12.0-15.0); Immature Granulocyte Absolute 0.05 K/mm3 (0.00-0.031); Immature Granulocyte Percent A 0.5 % (0-0.5); Lymphocytes Absolute Auto 1.47 K/mm3 (0.9-3.2); Lymphocytes Percent Auto 14.5 % (18.3-44.2); Mean Corpuscular HGB Conc 33.7 g/dl (32-36); Mean Corpuscular Hemoglobin 30.3 pg (26-34); Mean Corpuscular Volume 89.9 fl (80-100); Monocytes Absolute Auto 0.4 K/mm3 (0.1-0.6); Monocytes Percent Auto 4.1 % (2.6-8.5); Neutrophils Absolute Auto 8.1 K/mm3 (1.3-6.7); Neutrophils Percent Auto 79.9 % (45.5-73.1); Platelet Count Result 197 k/mm3 (150-375); Red Blood Count 4.16 M/mm3 (4.2-5.4); Red Cell Distribution Width 12.9 % (11.5-14.5); White Blood Count 10.2 K/mm3 (4.5-10.0)
[2024-12-17 13:41] LABS: Syphilis IgG/IgM Antibody Non-Reactive (Nonreactive)
--- OUTSIDE RECORDS SUMMARY | 2024-12-17 13:41 | XMS_ITS | Continuity of Care Document ---
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 Plan of Treatment Reminders Order Date Submit Date Provider Last Modified By Organization Details Last Modified Time Details Appointments OB ROUTINE 2024 10:45A Krishna PADRON MD Not available Not available Not available OB ROUTINE 2024 11:00A Krishna PADRON MD Not available Not available Not available Lab None recorded . Referral None recorded . Procedures None recorded . Surgeries None recorded . Imaging None recorded . Medication Orders None recorded . Patient TargetsNo targets recorded. Patient InstructionsNo instructions recorded. Reason for Referral None Reported. Results Created Date Observation Date Name Description Value Unit Range Abnormal Flag Note LastModifiedBy Organization Detail LastModifiedTime 08/26/19 25 08/26/2024 US, obste tric, 2nd or 3rd trime ster No observ ation record ed. [email or web address] [facility] [address], [place], [address], 08/26/2024 18:25:42 08/26/19 25 08/26/2024 US, obste tric, follo w-up No observ ation record ed. [email or web address] [facility] [address], [place], [address], 08/28/2024 11:21:16 09/25/19 25 09/24/2024 US, obste tric, follo w-up No observ ation record ed. [email or web address] [facility] [address], [place], [address], 09/24/2024 18:23:30 09/25/19 25 09/24/2024 US, obste tric, follo w-up No observ ation record ed. [facility] [address], [place], [address], 09/24/2024 22:23:34 10/28/19 25 10/26/2024 non-s tress test No observ ation record ed. [place] [id number] [facility] [address], [place], [address], 11/10/2024 09:49:52 11/01/19 25 10/31/2024 non-s tress test No observ ation record ed. [address], [place], [address], 11/03/2024 11:32:33 11/29/19 25 11/28/2024 US, obste tric, follo w-up No observ ation record ed. [email or web address] [facility] [address], [place], [address], 12/04/2024 13:22:33 11/29/19 25 11/28/2024 US, obste tric, follo w-up No observ ation [facility] ed. [facility] [address], [place], [address], 11/28/2024 18:12:49 Result Notes None recorded. Problems Name Problem SNOMED Code Status Onset Date Resolution Date Notes Provider Name and Address Organization Details Recorded Time 28629040 Active 2024 Yoko anderson, [facility] 09:22:20 Anemia 694836511 Active 2024 slo fe bid Prerna anderson [facility] 10:16:41 Proteinur ia 41296883 Active 202411/03/24 proteinuri a, cont to monitor bp at [facility] Becky Scruggs [facility] 15:29:53 Problem Notes None recorded. Procedures Surgical History Date Name Laterality Status Provider Name and Address Organization Details Recorded Time 0 Appendectomy completed Yoko Ramírez [facility] 07/03/2024 15:13:03 Imaging Results None recorded. [...] completed Not Available Not Available Not Available active Not Available Not Avai lable Not Available Vitals Date Recorded Body height Body mass index (BMI) Body weight Systolic blood pressure Diastolic blood pressure Provider Name and Address Organization Details Last Updated DateTime 12/17/2024 160.02 cm 31.5 kg/m2 83588.44 g 163 mm[Hg] 105 mm[Hg] Nayeli Roderick [facility] 11:50:59 Social History Question Answer Notes LastModified by Organizat ion Details LastModified Time Tobacco Smoking Status Never Smoker Becky Scruggs [facility], [facility] 10/31/2024 10:09:34 Do You Have An Advance Directive? No [email or web address] Information n ot available 07/03/2024 If You Are , What Was Your Level Of Alcohol Consumption Prior To ? Occasional [email or web address] Information not available 10/31/2024 Are You Blind Or Do You Have Difficulty Seeing? No [email or web address] Information n ot available 07/03/2024 What Is Your Level Of Caffeine Consumption? Occasional [email or web address] Information not available 07/03/2024 How Much Tobacco Do You Chew? None [email or web address] Information not available 07/03/2024 In The 14 Days Before Symptom Onset, Have You Had Close Contact With A Laboratory-confirm ed COVID-19 While That Case Was Ill? No Information n ot available 07/03/2024 In The 14 Days Before Symptom Onset, Have You Had Close Contact With A Person Who Is Under Investigation For COVID-19 While That Person Was Ill? No [email or web address] Information not available 07/03/2024 Have You Been To An Area Known To Be High Risk For COVID-19? No [email or web address] Information not available 07/03/2024 Are You Deaf Or Do You Have Serious Difficulty Hearing? No [email or web address] Information not available 07/03/2024 What Is The Highest Grade Or Level Of School You Have Completed Or The Highest Degree You Have Received? AR63203-7 [email or web address] Information not available 07/03/2024 Are There Any Guns Present In Your Home? No [email or web address] Information not available 07/03/2024 Do You Use Protection During Sex? No Information not available 07/03/2024 Do You Use Your Seat Belt Or Car Seat Routinely? Yes Information not available 07/03/2024 Do You Have Smoke And Carbon Monoxide Detectors In Your Home? Yes Information not available 07/03/2024 How Much Tobacco Do You Smoke? No Information not available 07/03/2024 Do You Use Sunscreen Routinely? Yes [email or web address] Information not available 07/03/2024 Have You Used IV Drugs? No [email or web address] Information not available 07/03/2024 Do You Have Difficulty Walking Or Climbing Stairs? No Information not available 10/31/2024 Sex: Unknown Functional Status Question Answer Note LastModified by Organizat ion Details LastModified Time Do you use any illicit or recreational drugs? No [email or web address] Information not available 07/03/2024 What is your level of alcohol consumption? None [email or web address] Information not available 07/03/2024 Are you able to walk? YESWOREST [email or web address] Information not available 07/03/2024 Are you able to care for yourself? 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 No Information not available 10/31/2024 What is your exercise level? Occasional Information not available 07/03/2024 Mental Status Question Answer Note LastModified by Organization D etails LastModified Time Do you feel stressed (tense, restless, nervous, or anxious, or unable to sleep at night)? [id number] Information not available 07/03/2024 Family History Nothing Reported. Medical History Condition [...] N Thrombophilias N Gynecological History Statement/Question Response Abnormal Pap N Date of Last Mammogram Date of LMP 03/26/2024 On BCP's at Conception? N Was last menstrual period normal Y STIs/STDs N Current Control Method Are cycles usually normal Y Date of Last Colonoscopy Sexually Active? Y Menses Monthly Y Date of DEXA bone scan Age of first menstrual cycle 13 Date of Last Pap Smear Sexual Problems? N LMP Definite Obstetrics History GPAL:G 1 P 0 0 0 0 Type Value Living 0 Total 1 Past Encounters Encounter ID Performer Location Encounter Start Date Encounter Closed Date Diagnosis/Indication Diagnosis SNOMED-CT Code Diagnosis ICD10 Code Diagnosis Note [id number] Bryon Mensah MD [facility] [address] [address] 11/28/2024 14:49:48 12/01/2024 09:35:13 Observational assessment 580320671 Z03.74 Z3A.35 [id number] Lupe Romeo CNM [facility] [address],[place] [address] 11/28/2024 14:50:10 11/28/2024 16:28:46 Gestation period, 35 weeks 81876440 Z3A.35 [id number] REY PADRON MD [facility] [address] [address] 12/10/2024 10:40:43 12/10/2024 12:06:29 Elevated blood-pressure reading without diagnosis of hypertension 134649423 R03.0 Gestation period, 37 weeks 87877726 Z3A.37 [id number] REY PADRON MD [facility] [address] [address] 12/17/2024 11:44:30 12/17/2024 12:26:05 Hypertension AND/OR vomiting complicating childbirth AND/OR puerperium 314345235 O13.3 - asymptomat ic- met criteria for gestationa l HTN today given repeat elevated BP- Discussed risks of severe range BP, gHTN and preeclamps ia- recommend induction today- patient to present to the hospital for induction of labor Gestation period, 38 weeks 53761038 Z3A.38 Health Concerns Section Related Observation LastModified by Organization Detai ls LastModified Time None Recorded Concern Status LastModified by Organization Details LastModified Time None Recorded Payers Encounter Date Sequence Insurance Name Policy Number Policy Reid Covered Member ID Reid Member ID Guarantor Name 12/17/2024 1 [facility] [id number] Supriya Marcano [id number] Supriya Marcano OBGyn Episode Ob Episode Information Episode Created Date Number of Fetuses Patient Bloodtype Patient rh Status Prepregnancy Weight lbs Domestic Partner Domestic Partner Phone Father Name Health Advocate Status 07/23/19 25 1 AB Positive OPEN Fetus Data First Name Last Name Admitted to NICU Weight (g) Sex Living Outcome Pediatric Complications Fetus ID Race Codes Race Delivery Type [id number] Problems Problem Notes Problem Name Start Date End Date Resolution Snomed Code Not e Anemia 10/28/2024 442459390 slo fe bi d Proteinuria 11/03/2024 09644826 11/03/24 proteinuria, cont to monitor bp at appointments Elias Calculation Initial Elias Date Initial Exam [...] Date Ultra Sound Latest Days Gestation 0 08/26/2024 01/01/20 25 0 Pre-flaquito Flowsheet Flowsheet Date 08/05/2024 Stone Score Blood Edema Fundus Height Fundus Units Glucose Ketones Leukocytes Nitrite Labor Signs Protein Cervic Dilation Cervic Effacement Cervic Station Type Weight in lbs Pre/Post Dialysis Refused Weight 142.478925946548 BP Diastolic BP Location Tested BP Systolic [...] Weight in lbs Pre/Post Dialysis Refused Weight 151.235377257595 BP Diastolic BP Location Tested BP Systolic [...] Weight in lbs Pre/Post Dialysis Refused Weight 154.480760274214 BP Diastolic BP Location Tested BP Systolic [...] Type Weight in lbs Pre/Post Dialysis Refused 163.159695757372 BP Diastolic BP Location Tested BP Systolic [...] Weight in lbs Pre/Post Dialysis Refused Weight 165.495728166667 BP Diastolic BP Location Tested BP Systolic BP Type 87 143 Fetus Heart Rate Present Fetus Movement A Yes Comments Patient is having lightheade d, dizziness, contractions, headache, swelling and nausea. to ld for evaluation, +FM , sign up for preadmit Flowsheet Date 11/14/2024 Stone Score Blood Edema Fundus Height Fundus Units Glucose Ketones Leukocytes Nitrite Labor Signs Protein Cervic Dilation Cervic Effacement Cervic Station neg none 29 cm Type Weight in lbs Pre/Post Dialysis Refused Weight 172.518923674270 BP Diastolic BP Location Tested BP Systolic BP Type 79 128 Fetus Heart Rate Present A 136 Present Fetus Movement A Yes Comments +FM, doing well, plan growth , schedule preadmit, education and precautions, f/u 2 weeks gbs at 36 weeks Flowsheet Date 11/28/2024 Stone Score Blood Edema Fundus Height Fundus Units Glucose Ketones Leukocytes Nitrite Labor Signs Protein Cervic Dilation Cervic Effacement Cervic Station Type Weight in lbs Pre/Post Dialysis Refused BP Diastolic BP Location Tested BP Systolic BP Type Fetus Heart Rate Present Fetus Movement Comments Flowsheet Date 11/28/2024 Stone Score Blood Edema Fundus Height Fundus Units Glucose Ketones Leukocytes Nitrite Labor Signs Protein Cervic Dilation Cervic Effacement Cervic Station neg none Type Weight in lbs Pre/Post Dialysis Refused 176.657010614333 BP Diastolic BP Location Tested BP Systolic BP Type 80 130 Fetus Heart Rate Present Fetus Movement A Yes Comments Patient is having some contr actions. efw 48% ptl precautions, preadmit sunday education done, +FM f/u one week Flowsheet Date 12/10/2024 Stone Score Blood Edema Fundus Height Fundus Units Glucose Ketones Leukocytes Nitrite Labor Signs Protein Cervic Dilation Cervic Effacement Cervic Station 0cm 50% -3 Type Weight in lbs Pre/Post Dialysis Refused 175.660572599441 BP Diastolic BP Location Tested BP Systolic BP Type 89 L arm 143 sitting Fetus Heart Rate Present A 145 Fetus Movement A Yes Comments Doing well, good movem ent. No cramping or bleeding. had elevated BP over the weekend, asymptomatic today. Discussed if repeat elevated BP next week, would recommend induction for gHTN. Will check labs today. GBS collected,SVE 0.5cm. Discussed labor precautions. RTC 1 week. Flowsheet Date 12/17/2024 Stone Score Blood Edema Fundus Height Fundus Units Glucose Ketones Leukocytes Nitrite Labor Signs Protein Cervic Dilation Cervic Effacement Cervic Station Type Weight in lbs Pre/Post Dialysis Refused Weight 178.712508834558 BP Diastolic BP Location Tested BP Systolic BP Type 105 L arm 163 sitting Fetus Heart Rate Present A 140 Fetus Movement A Yes Comments Good movement, no cram ping or bleeding. BP elevated today, patient reports it was 140s/90s at home this AM. Asymptomatic. Discussed diagnosis of gestational hypertension and recommendation for delivery today. Discussed need for MgSO4 if BPs remain severe range or if labs are abnormal due to increased risks for eclampsia. Discussed plan for cytotec induction. Patient to present to hospital for induction. Menstrual History Last Menstrual Date Menses Monthly [...]
--- OUTSIDE RECORDS SUMMARY | 2024-12-17 13:41 | XMS_ITS | Data Portability ---
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 Discussed plan. [email or web address] Not available 11/14/2024 20:53:11 11/28/2024 11/28/2024 Patient is _35__weeks . Discussed plan. [email or web address] Not available 11/28/2024 16:21:20 Plan of Treatment Reminders Order Date Submit Date Provider Last Modified By Organization Details Last Modified Time Details Appointments OB ROUTINE 2024 10:45A Krishna PADRON MD Not available Not available Not available OB ROUTINE 2024 11:00A Krishna PADRON MD Not available Not available Not available Lab CBC w/ auto diff 2024 025 [facility] (Lab), [address], [place], [address], 12/11/2024 04:41:31 CMP, serum or plasma 2024 025 [facility] (Lab), [address], [place], [address], 12/11/2024 04:41:32 protein: creatini ne ratio, urine 2024 025 [facility] (Lab), [address], [place], [address], 12/11/2024 04:41:32 Referral None recorded . Procedures None recorded . Surgeries None recorded . Imaging US, obstetri c, follow-u p 2024 [email or web address], [address], [place], [address], 12/01/2024 09:35:13 Medication Orders None recorded . Patient TargetsNo targets recorded. Patient InstructionsNo instructions recorded. Reason for Referral None Reported. Results Created Date Observation Date Name Description Value Unit Range Abnormal Flag Note LastModifiedBy Organization Detail LastModifiedTime 10/18/1910/17/2024 HEMOG LOBIN (HGB) HGB 10.5 g/dL (based on docume nted legal sex) 11.6-1 5.4 low Not Available [facility] (Lab) [address] [facility], [place], [address], 10/18/2024 13:46:06 10/18/19 25 10/17/2024 HEMAT OCRIT (HCT) HCT 33.6 % (based on docume nted legal sex) 34.0-4 5.0 low Not Available [facility] (Lab) [address] [facility], [place], [address], 10/18/2024 13:46:06 10/18/19 25 10/17/2024 GTT - GESTA MARJAN L SCREE N, ACOG OB glucose, 1 hour screen 101 mg/dL 70-135 Not Available [facility] (Lab) [address] [facility], [place], [address], 10/18/2024 13:46:07 10/18/19 25 10/17/2024 HIV 1/2 ANTIG EN/AN TIBOD Y, REFLE X CONFI RMATI ON HIV antigen/anti body Nonrea ctive nonrea ctive HIV-1 antig en and HIV-1 /HIV- 2 antib odies were not detec shlomo. No labor atory evide nce of HIV infec tion. Not Available [facility] (Lab) [address], [place], [address], 10/18/2024 13:46:07 10/18/1910/17/2024 RPR SCREE N, REFLE X TITER /CONF IRMAT ION RPR qualitative Nonrea ctive nonrea ctive Not Available [facility] (Lab) [address] [facility], [place], [address], 10/18/2024 13:46:07 12/11/19 25 12/10/2024 CBC W/DIF F WBC 10.0 10'3/ uL 3.5-10 .5 Not Available [facility] (Lab) [address] [facility], [place], [address], 12/11/2024 04:41:31 12/11/1912/10/2024 CBC W/DIF F RBC 4.04 10'6/ uL (based on docume nted legal sex) 3.80-5 .20 Not Available [facility] (Lab) [address] [facility], [place], [address], 12/11/2024 04:41:31 12/11/1912/10/2024 CBC W/DIF F HGB 12.1 g/dL (based on docume nted legal sex) 11.6-1 5.4 Not Available [facility] (Lab) [address] [facility], [place], [address], 12/11/2024 04:41:31 12/11/1912/10/2024 CBC W/DIF F HCT 37.0 % (based on docume nted legal sex) 34.0-4 5.0 Not Available [facility] (Lab) [address], [place], [address], 12/11/2024 04:41:31 12/11/19 25 12/10/2024 CBC W/DIF F MCV 91.6 fL 80.0-9 9.0 Not Available [facility] (Lab) [address], [place], [address], 12/11/2024 04:41:31 12/11/19 25 12/10/2024 CBC W/DIF F MCH 30.0 pg 27.0-3 4.0 Not Available [facility] (Lab) [address] [facility], [place], [address], 12/11/2024 04:41:31 12/11/19 25 12/10/2024 CBC W/DIF F MCHC 32.7 g/dL 32.0-3 5.5 Not Available [facility] (Lab) [address] [facility], [place], [address], 12/11/2024 04:41:31 12/11/19 25 12/10/2024 CBC W/DIF F RDW 12.8 % 11.0-1 5.0 Not Available [facility] (Lab) [address] [facility], [place], [address], 12/11/2024 04:41:31 12/11/19 25 12/10/2024 CBC W/DIF F plt 207 10'3/ uL 150-40 0 Not Available [facility] (Lab) [address] [facility], [place], [address], 12/11/2024 04:41:31 12/11/19 25 12/10/2024 CBC W/DIF F MPV 11.5 fL 8.8-12 .1 Not Available [facility] (Lab) [address] [facility], [place], [address], 12/11/2024 04:41:31 12/11/19 25 12/10/2024 CBC W/DIF F NRBC's 0.0 % 0.0 Not Available [facility] (Lab) [address] [facility], [place], [address], 12/11/2024 04:41:31 12/11/19 25 12/10/2024 CBC W/DIF F absolute NRBCs 0.0 10'3/ uL no refere nce range establ ished Not Available [facility] (Lab) [address] [facility], [place], [address], 12/11/2024 04:41:31 12/11/19 25 12/10/2024 CBC W/DIF F neutrophils 74.9 % 34.0-7 3.0 high Not Available [facility] (Lab) [address] [facility], [place], [address], 12/11/2024 04:41:31 12/11/19 25 12/10/2024 CBC W/DIF F lymphocytes 15.9 % 15.0-5 0.0 Not Available [facility] (Lab) [address] [facility], [place], [address], 12/11/2024 04:41:31 12/11/19 25 12/10/2024 CBC W/DIF F monocytes 7.0 % 1.0-15 .0 Not Available [facility] (Lab) [address] [facility], [place], [address], 12/11/2024 04:41:31 12/11/19 25 12/10/2024 CBC W/DIF F eosinophils 1.3 % 0.0-8. 0 Not Available [facility] (Lab) [address] [facility], [place], [address], 12/11/2024 04:41:31 12/11/19 25 12/10/2024 CBC W/DIF F basophils 0.3 % 0.0-2. 0 Not Available [facility] (Lab) [address] [facility], [place], [address], 12/11/2024 04:41:31 12/11/19 25 12/10/2024 CBC W/DIF F immature granulocytes 0.6 % no define d refere nce range Immat ure Granu locyt es (IG) repre sents autom ated enume ratio n of Metam yeloc ytes, Myelo cytes and Promy elocy yannick when IG is < 5%. Blast s are not inclu ded in IG and repor shlomo separ ately if prese nt. Not Available [facility] (Lab) [address] [facility], [place], [address], 12/11/2024 04:41:31 12/11/1912/10/2024 CBC W/DIF F absolute neutrophils 7.5 10'3/ uL 1.5-8. 0 Not Available [facility] (Lab) [address] [facility], [place], [address], 12/11/2024 04:41:31 12/11/19 25 12/10/2024 CBC W/DIF F absolute lymphocytes 1.6 10'3/ uL 1.0-4. 0 Not Available [facility] (Lab) [address] [facility], [place], [address], 12/11/2024 04:41:31 12/11/19 25 12/10/2024 CBC W/DIF F absolute monocytes 0.7 10'3/ uL 0.2-1. 0 Not Available [facility] (Lab) [address] [facility], [place], [address], 12/11/2024 04:41:31 12/11/19 25 12/10/2024 CBC W/DIF F absolute eosinophils 0.1 10'3/ uL 0.0-0. 6 Not Available [facility] (Lab) [address] [place], [address], 12/11/2024 04:41:31 12/11/1912/10/2024 CBC W/DIF F absolute basophils 0.0 10'3/ uL 0.0-0. 3 Not Available [facility] (Lab) [address] [facility], [place], [address], 12/11/2024 04:41:31 12/11/1912/10/2024 CBC W/DIF F absolute immature granulocytes 0.1 10'3/ uL 0.00-0 .10 Refer ence range s for nonbi nary/ inter sex or unspe cifie d gende r patie nts have not been estab lishe murphy [place] e refer to the follo wing table for range s estab lishe d for cisge nder patie nts and evalu ate in the clini sweetie zac xt of the indiv idual patie nt: https :[email or web address] haines book. nm.or g/gen derx Not Available [facility] (Lab) [address] [facility], [place], [address], 12/11/2024 04:41:31 12/11/19 25 12/10/2024 CMP(C OMPRE HENSI VE METAB OLIC PANEL ) sodium 136 mmol/ L 133-14 6 Not Available [facility] (Lab) [address] [facility], [place], [address], 12/11/2024 04:41:32 12/11/19 25 12/10/2024 CMP(C OMPRE HENSI VE METAB OLIC PANEL ) potassium 4.1 mmol/ L 3.5-5. 1 Not Available [facility] (Lab) [address] [facility], [place], [address], 12/11/2024 04:41:32 12/11/19 25 12/10/2024 CMP(C OMPRE HENSI VE METAB OLIC PANEL ) chloride 103 mmol/ L 98-107 Not Available [facility] (Lab) [address] [facility], [place], [address], 12/11/2024 04:41:32 12/11/19 25 12/10/2024 CMP(C OMPRE HENSI VE METAB OLIC PANEL ) carbon dioxide 26 mmol/ L 21-31 Not Available [facility] (Lab) [address] [facility], [place], [address], 12/11/2024 04:41:32 12/11/19 25 12/10/2024 CMP(C OMPRE HENSI VE METAB OLIC PANEL ) anion gap 7 mmol/ L 4-13 Not Available [facility] (Lab) [address] [place], [address], 12/11/2024 04:41:32 12/11/19 25 12/10/2024 CMP(C OMPRE HENSI VE METAB OLIC PANEL ) blood urea nitrogen 6 mg/dL 7-25 low Not Available [facility] (Lab) [address] [facility], [place], [address], 12/11/2024 04:41:32 12/11/19 25 12/10/2024 CMP(C OMPRE HENSI VE METAB OLIC PANEL ) creatinine 0.52 mg/dL 0.60-1 .30 low Not Available [facility] (Lab) [address] [facility], [place], [address], 12/11/2024 04:41:32 12/11/19 25 12/10/2024 CMP(C OMPRE HENSI VE METAB OLIC PANEL ) egfrcr (CKD-epi 2020) >90 mL/mi n/1.7 3_m2 >=60 Not Available [facility] (Lab) [address] [facility], [place], [address], 12/11/2024 04:41:32 12/11/19 25 12/10/2024 CMP(C OMPRE HENSI VE METAB OLIC PANEL ) calcium 8.9 mg/dL 8.3-10 .5 Not Available [facility] (Lab) [address] [facility], [place], [address], 12/11/2024 04:41:32 12/11/19 25 12/10/2024 CMP(C OMPRE HENSI VE METAB OLIC PANEL ) glucose 72 mg/dL 70-100 Not Available [facility] (Lab) [address] [facility], [place], [address], 12/11/2024 04:41:32 12/11/19 25 12/10/2024 CMP(C OMPRE HENSI VE METAB OLIC PANEL ) protein, total 6.5 g/dL 6.4-8. 3 Not Available [facility] (Lab) [address] [facility], [place], [address], 12/11/2024 04:41:32 12/11/19 25 12/10/2024 CMP(C OMPRE HENSI VE METAB OLIC PANEL ) albumin 3.8 g/dL 3.5-5. 0 Not Available [facility] (Lab) [address] [facility], [place], [address], 12/11/2024 04:41:32 12/11/19 25 12/10/2024 CMP(C OMPRE HENSI VE METAB OLIC PANEL ) ALT 10 units /L 9-43 Not Available [facility] (Lab) [address] [facility], [place], [address], 12/11/2024 04:41:32 12/11/19 25 12/10/2024 CMP(C OMPRE HENSI VE METAB OLIC PANEL ) alkaline phosphatase 104 units /L 34-104 Not Available [facility] (Lab) [address] [facility], [place], [address], 12/11/2024 04:41:32 12/11/19 25 12/10/2024 CMP(C OMPRE HENSI VE METAB OLIC PANEL ) AST 16 units /L 13-39 Not Available [facility] (Lab) [address] [facility], [place], [address], 12/11/2024 04:41:32 12/11/19 25 12/10/2024 CMP(C OMPRE HENSI VE METAB OLIC PANEL ) bilirubin, total 0.4 mg/dL 0.2-1. 2 Not Available [facility] (Lab) [address] [place], [address], 12/11/2024 04:41:32 12/11/19 25 12/10/2024 PROTE IN/CR EATIN INE RATIO , URINE creatinine, urine 33.8 mg/dL R-No refer ence range estab lishe d for this assay Not Available [facility] (Lab) [address] [place], [address], 12/11/2024 04:41:32 12/11/19 25 12/10/2024 PROTE IN/CR EATIN INE RATIO , URINE protein, urine 7 mg/dL R-No refer ence range estab lishe d for this assay Not Available [facility] (Lab) [address], [place], [address], 12/11/2024 04:41:32 12/11/19 25 12/10/2024 PROTE IN/CR EATIN INE RATIO , URINE protein/crea tinine ratio, urine 0.21 . No Refer ence Range avail able for Rando m Urine s. A prote in to creat inine ratio of >=0.1 9 is a good predi ctor of signi fican t prote inuri a. A level of <0.14 can rule out signi fican t prote inuri a. Not Available [facility] (Lab) [address], [place], [address], 12/11/2024 04:41:32 12/11/19 25 12/10/2024 CULTU RE: GROUP B STREP SCREE N, REFLE X SUSCE PTIBI LITY result report SEE RESULT S BELOW Test: Cultu re: Group B Strep , Refle x Susce ptibi lity ([facility]/ [facility]/K H/[facility] ) Speci men Sourc e: Vagin a/Rec ronyn Speci men Type: Vagin al/Re ctal Speci men Date: 2024 1131 Resul t Date: 2024 1426 Resul t Statu s: Final resul t Abnor mal: No Resul ting Lab: [facility] [address] [facility] [address] Tel: CULTU RE ----- ----- ----- --- No Group B strep isola shlomo at 2 days (chip ctive broth enhan cemen t) Not Available [facility] (Lab) [address], [place], [address], 12/13/2024 15:29:54 10/28/19 25 10/26/2024 non-s tress test No observ ation record ed. [place] [address], [place], [address], 11/10/2024 09:49:52 11/01/1910/31/2024 non-s tress test No observ ation record ed. [address], [place], [address], 11/03/2024 11:32:33 11/29/19 25 11/28/2024 US, obste tric, follo w-up No observ ation record ed. [address], [place], [address], 12/04/2024 13:22:33 11/29/19 25 11/28/2024 US, obste tric, follo w-up No observ ation record ed. [facility] [address], [place], [address], 11/28/2024 18:12:49 Result Notes None recorded. Problems Name Problem SNOMED Code Status Onset Date Resolution Date Notes Provider Name and Address Organization Details Recorded Time 97500442 Active 2024 Yoko Ramírez [facility] 09:22:20 Anemia 287374439 Active 2024 slo fe bid Prerna Rubalcava [facility] 10:16:41 Proteinur ia 08493129 Active 202411/03/24 [facility]uri a, [facility], [facility] 15:29:53 Problem Notes None recorded. Procedures Surgical History Date Name Laterality Status Provider Name and Address Organization Details Recorded Time 0 Appendectomy completed Yoko Ramírez [facility] 07/03/2024 15:13:03 Imaging Results None [...] and Address Organization Details Last Updated DateTime 11/14/2024 160.02 cm 30.5 kg/m2 84269.89 g 128 mm[Hg] 79 mm[Hg] Becky Scruggs [facility] 17:03:18 Date Recorded Body weight Body mass index (BMI) Body height Systolic blood pressure Diastolic blood pressure Provider Name and Address Organization Details Last Updated DateTime 11/28/2024 89697.25 712 g 31.2 kg/m2 160.02 cm 130 mm[Hg] 80 mm[Hg] Becky Scruggs [facility] 15:57:22 Date Recorded Body weight Systolic blood pressure Diastolic blood pressure Provider Name and Address Organization Details Last Updated DateTime 12/10/2024 19788.6647 5 g 143 mm[Hg] 89 mm[Hg] Nayeli [facility] 12/10/2024 11:22:12 Date Recorded Body height Body mass index (BMI) Body weight Systolic blood pressure Diastolic blood pressure Provider Name and Address Organization Details Last Updated DateTime 12/17/2024 160.02 cm 31.5 kg/m2 52973.44 g 163 mm[Hg] 105 mm[Hg] Nayeli [facility] 11:50:59 Social History Question Answer Notes LastModified by Organizat ion Details LastModified Time Tobacco Smoking Status Never Smoker Becky [email or web address] [facility] 10/31/2024 10:09:34 Do You Have An Advance Directive? No [email or web address] Information n ot available 07/03/2024 If You Are , What Was Your Level Of Alcohol Consumption Prior To ? Occasional [email or web address] Information not available 10/31/2024 Are You Blind Or Do You Have Difficulty Seeing? No [email or web address] Information n ot available 07/03/2024 What Is Your Level Of Caffeine Consumption? Occasional [email or web address] Information not available 07/03/2024 How Much Tobacco Do You Chew? None [email or web address] Information not available 07/03/2024 In The 14 Days Before Symptom Onset, Have You Had Close Contact With A Laboratory-confirm ed COVID-19 While That Case Was Ill? No [email or web address] Information n ot available 07/03/2024 In The 14 Days Before Symptom Onset, Have You Had Close Contact With A Person Who Is Under Investigation For COVID-19 While That Person Was Ill? No [email or web address] Information not available 07/03/2024 Have You Been To An Area Known To Be High Risk For COVID-19? No [email or web address] Information not available 07/03/2024 Are You Deaf Or Do You Have Serious Difficulty Hearing? No [email or web address] Information not available 07/03/2024 What Is The Highest Grade Or Level Of School You Have Completed Or The Highest Degree You Have Received? [id number] [email or web address] Information not available 07/03/2024 Are There Any Guns Present In Your Home? No Information not available 07/03/2024 Do You Use Protection During Sex? No [email or web address] Information not available 07/03/2024 Do You Use Your Seat Belt Or Car Seat Routinely? Yes [email or web address] Information not available 07/03/2024 Do You Have Smoke And Carbon Monoxide Detectors In Your Home? Yes [email or web address] Information not available 07/03/2024 How Much Tobacco Do You Smoke? No [email or web address] Information not available 07/03/2024 Do You Use Sunscreen Routinely? Yes [email or web address] Information not available 07/03/2024 Have You Used IV Drugs? No [email or web address] Information not available 07/03/2024 Do You Have Difficulty Walking Or Climbing Stairs? No [email or web address] Information not available 10/31/2024 Sex: Unknown Functional Status Question Answer Note LastModified by Organizat ion Details LastModified Time Do you use any illicit or recreational drugs? No [email or web address] Information not available 07/03/2024 What is your level of alcohol consumption? None [email or web address] Information not available 07/03/2024 Are you able to walk? YESWOREST [email or web address] Information not available 07/03/2024 Are you able to care for yourself? 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 No [email or web address] Information not available 10/31/2024 What is your exercise level? Occasional [email or web address] Information not available 07/03/2024 Mental Status Question Answer Note LastModified by Organization D etails LastModified Time Do you feel stressed (tense, restless, nervous, or anxious, or unable to sleep at night)? [id number] Information not available 07/03/2024 Family History Nothing Reported. Medical History Condition Response Other N Blood Transfusion N Dermatologic Disorders N Gestational Diabetes N Anxiety Disorder N Autoimmune disease N Arthritis N Polyps N Infertility N Acid Reflux (GERD) N Cancer N Varicosities N Stroke N Neurologic/Epilepsy N Fibromyalgia N Headaches N Kidney Disease N Heart Problems N Kidney or Bladder Problems N Eating Disorder N Art (IVF or FET) N Hepatitis/Liver Disease N No Past Medical History N Urinary Tract Infection N Asthma N Trauma/Violence N Thrombophilias N Allergies (Food, seasonal, environmental ) N Breast Cancer N Drug/Latex Allergies/Reactions N Lung Disease N Defects or Inherited Disease N Breast Problem N Hematologic disorders N Anesthesia Complications N History of STI N Deep Vein Thrombosis N Polycystic ovary syndrome N History of abnormal pap N Endometriosis N High Cholesterol N Thyroid Problems N GI Problems N Anemia Y Psychiatric Illness N Ovarian Cancer N Diabetes N Pulmonary (TB, Asthma) N Eczema N Abuse/Domestic Violence N Depression/ depression N Heart Disease N Pre-Eclampsia N Hypertension N Osteoporosis N Gynecological History Statement/Question Response Abnormal Pap [...] SNOMED-CT Code Diagnosis ICD10 Code Diagnosis Note [id number] MD Nicole Sanchez [address],[place] [address] 07/03/2024 14:12:04 07/03/2024 15:09:33 screening 203980808 Z36.87 Z3A.14 [id number] REY PADRON MD [address],[place] [address] 07/03/2024 14:12:40 07/03/2024 16:15:50 Brief loss of consciousness 33654208 R55 - LOC episode in October, unclear trigger- HOlter and EKG normal per patient, she was told she may have POTS- has not had cards eval yet, referral resent as she is having more dizziness episodes now test positive 255775471 Z32.01 1. Exam today within normal limits.2. Ultrasound today confirms GA and viability. EDC . GC/Clamydi a testing done: will f/u as indicated. 4. ACOG guidelines and plan of care for reviewed with patient. All questions answered.5 . Return to office at 12 weeks for new OB visit6. Will need new OB labs at next visit.7. Genetic screening: desires. screening 2437 81761 Z36.0 Genetic in vestigation procedure 65290353 Z31.430 [id number] Bryon Mensah MD [address],[place] [address] 07/22/2024 17:13:39 07/22/2024 17:34:11 [id number] REY PADRON MD [address],[place] [address] 07/22/2024 17:14:17 07/31/2024 13:50:57 Routine care 706732251 Z34.01 [id number] REY PADRON MD [address],[place] [address] 08/05/2024 11:27:25 08/05/2024 12:52:33 Right flank pain 958123193 R10.9 - ddx: MSK vs UTI/pyelo- mild CVA tenderness - urine culture sent- flexeril and tylenol for pain relief; keflex for empiric UTI coverage [id number] Bryon Mensah MD [address],[place] [address] 08/26/2024 17:12:37 08/27/2024 06:02:25 screening for malformation 080917726 Z36.3 Z3A.21 [id number] REY PADRON MD [address],[place] [address] 08/26/2024 17:12:58 08/27/2024 04:08:08 Routine care 401276637 Z34.01 [id number] Bryon Mensah MD [address],[place] [address] 09/24/2024 16:38:32 09/24/2024 17:19:30 screening 964244556 Z36.2 Z3A.26 [id number] REY PADRON MD [address],[place] [address] 09/24/2024 16:39:33 09/25/2024 08:37:55 Routine care 513986939 Z34.01 [id number] Bryon Mensah MD [address],[place] [address] 10/17/2024 09:13:00 10/17/2024 09:59:40 Third trimester 19954425 Z34.03 [id number] Lupe Romeo CNM [address] [place] [address] 10/31/2024 09:50:16 10/31/2024 10:12:01 Gestation period, 31 weeks 17410443 Z3A.31 [id number] Lupe Romeo CN[address],[place] [address] 11/14/2024 16:19:42 11/15/2024 11:20:27 Gestation period, 33 weeks 72091893 Z3A.33 [id number] Bryon Mensah MD [address],[place] [address] 11/28/2024 14:49:48 12/01/2024 09:35:13 Observational assessment 700987445 Z03.74 Z3A.35 [id number] [facility] [address],[place] [address] 11/28/2024 14:50:10 11/28/2024 16:28:46 Gestation period, 35 weeks 59041268 Z3A.35 [id number] REY PADRON MD [address],[place] [address] 12/10/2024 10:40:43 12/10/2024 12:06:29 Elevated blood-pressure reading without diagnosis of hypertension [id number] R03.0 Gestation period, 37 weeks [id number] Z3A.37 [id number] REY PADRON MD [address],[place] [address] 12/17/2024 11:44:30 12/17/2024 12:26:05 Hypertension AND/OR vomiting complicating childbirth AND/OR puerperium [id number] O13.3 - asymptomat ic- met criteria for gestationa l HTN today given repeat elevated BP- Discussed risks of severe range BP, gHTN and preeclamps ia- recommend induction today- patient to present to the hospital for induction of labor Gestation period, 38 weeks [id number] Z3A.38 Health Concerns Section Related Observation LastModified by Organization Detai ls LastModified Time None Recorded Concern Status LastModified by Organization Details LastModified Time None Recorded Advance Directives Directive N: Payers Insurance Date Sequence Insurance Name Policy Number Policy Reid Covered Member ID Reid Member ID Guarantor Name 12/17/2024 1 [facility] [id number] Supriya Marcano [id number] Supriya Marcano 07/03/2024 1 [facility] [facility] [id number] Gopi Hennessy [id number] Supriya Marcano OBGyn Episode Ob Episode Information Episode Created Date Number of Fetuses Patient Bloodtype Patient rh Status Prepregnancy Weight lbs Domestic Partner Domestic Partner Phone Father Name Supervisor Cartography Status 07/23/19 1 AB Positive OPEN Fetus Data First Name Last Name Admitted to NICU Weight (g) Sex Living Outcome Pediatric Complications Fetus ID Race Codes Race Delivery Type [id number] Problems Problem Notes Problem Name Start Date End Date Resolution Snomed Code Not e Anemia 10/28/2024 [id number] slo fe bi d Proteinuria 11/03/2024 [id number] 11/03/24 proteinuria, cont to monitor bp at [...] Date Ultra Sound Latest Days Gestation 0 [id number] 08/26/2024 01/01/20 25 0 Pre- Flowsheet Flowsheet Date 08/05/2024 Stone Score Blood Edema Fundus Height Fundus Units Glucose Ketones Leukocytes Nitrite Labor Signs Protein Cervic Dilation Cervic Effacement Cervic Station Type Weight in lbs Pre/Post Dialysis Refused Weight 142.847236863064 BP Diastolic BP Location Tested BP Systolic [...] Weight in lbs Pre/Post Dialysis Refused Weight 151.809647147099 BP Diastolic BP Location Tested BP Systolic [...] Weight in lbs Pre/Post Dialysis Refused Weight 154.570027380636 BP Diastolic BP Location Tested BP Systolic [...] Type Weight in lbs Pre/Post Dialysis Refused 163.498932793923 BP Diastolic BP Location Tested BP Systolic [...] Weight in lbs Pre/Post Dialysis Refused Weight 165.628139207295 BP Diastolic BP Location Tested BP Systolic [...] Weight in lbs Pre/Post Dialysis Refused Weight 172.088855363082 BP Diastolic BP Location Tested BP Systolic [...] Type Weight in lbs Pre/Post Dialysis Refused 176.047695154805 BP Diastolic BP Location Tested BP Systolic [...] Type Weight in lbs Pre/Post Dialysis Refused 175.811959976185 BP Diastolic BP Location Tested BP Systolic [...] Weight in lbs Pre/Post Dialysis Refused Weight 178.230249243119 BP Diastolic BP Location Tested BP Systolic [...]
[2024-12-17] MEDS: miSOPROStol 25 MCG TABLET 50 MCG VAGINAL ×3 (14:01→22:56)
--- NOTE | 2024-12-17 17:42 | WPDANESEPP ---
Anes - Eval Pre Procedure Procedure: labor epidural Date/Time: 12/17/24 17:42 Surgeon: maco Preop Diagnosis: pain during labor Pre Op Diagnosis: IOL Patient Data Age: 24 Gender: F Height: 1.6 m Weight: 81 kg Last Vital Signs Temp 36.8 C 12/17/24 14:01 Pulse 67 12/17/24 17:15 BP 109/78 12/17/24 17:15 O2 Del Method Room Air 12/17/24 13:25 Allergies Allergy/AdvReac Type Severity Reaction Status Date / Time No Known Allergies Allergy Verified 10/31/24 10:18 Home Medications ?Medication ?Instructions ?Recorded ?Confirmed ?Type ferrous sulfate 325 mg (65 mg 325 mg PO BID 12/01/24 12/17/24 History iron) tablet (Deo-Time) vitamin-ferrous sulfate 1 tablet PO DAILY 12/01/24 12/17/24 History 27 mg iron-folic acid 0.8 mg tablet Laboratory Tests 12/17/24 12:38 WBC 10.2 H K/mm3 (4.5-10.0) RBC 4.16 L M/mm3 (4.2-5.4) Hgb 12.6 g/dL (12.0-15.0) Hct 37.4 % (37.0-47.0) MCV 89.9 fl (80-100) MCH 30.3 pg (26-34) MCHC 33.7 g/dl (32-36) RDW 12.9 % (11.5-14.5) Plt Count 197 k/mm3 (150-375) MPV 11.0 H fl (7.4-10.4) Immature Gran % (Auto) 0.5 % (0-0.5) Neut % (Auto) 79.9 H % (45.5-73.1) Lymph % (Auto) 14.5 L % (18.3-44.2) [place] % (Auto) 4.1 % (2.6-8.5) Eos % (Auto) 0.8 % (0-4.4) Baso % (Auto) 0.2 % (0.2-1.2) Lymph # (Auto) 1.47 K/mm3 (0.9-3.2) [place] # (Auto) 0.4 K/mm3 (0.1-0.6) Eos # (Auto) 0.1 K/mm3 (0-0.3) Baso # (Auto) 0.0 K/mm3 (0.0-0.1) Abs Immat Gran (auto) 0.05 H K/mm3 (0.00-0.031) Absolute Neuts (auto) 8.1 H K/mm3 (1.3-6.7) Absolute Nucleated RBC 0.000 K/mm3 (0.0-0.012) Nucleated RBC % 0.0 % (0.0-0.2) Syphilis IgG/IgM Ab Non-reactive (Nonreactive) Blood Type AB Positive Antibody Screen Negative Patient hx anesthesia problems: none Family hx anesthesia problems: none Results Review: All pre-operative results and documents have been reviewed as part of the pre-operative evaluation. [facility] Past Medical History Medical History (Updated 12/17/24 @ 17:43 by Prerna Giraldo CRNA) IUP (intrauterine ), incidental Family History Family History (Updated 12/01/24 @ 15:39 by Laila Boland RN) Other Patient denies significant medical history Social History Social History Smoking status: Never smoker Substance use: never Do You Feel Safe in your Home?: Yes Lack of Transportation: No Lack of Food: Never True Current Housing: I Have Housing Concerned About Future Housing: No Difficulty Paying Gas/Electric Bills: No Difficulty Paying for Meds: No Currently Unemployed: No Education: Bachelor's Degree Difficulty w/ Childcare or Family Care: No Spiritual care concerns: No Exam Day of Procedure 12/17/24 17:42
--- NOTE | 2024-12-17 17:57 | WPDOBADMIT ---
Obstetrics - Admit Note Admission Note: record reviewed. No pertinent additions to the history and/or any subsequent changes in the physical findings that are not consistent with the expected course of the were found. Additions to the history and/or subsequent changes in the physical findings follow. Admit for preeclampsia, denies any symptoms SVE /-2 continue cytotec, anticipate vaginal delivery
[2024-12-18] VITALS (92 sets, daily range): BP systolic 91–143; BP diastolic 56–110; PULSE 53–113; RESP 16; TEMP 36.4–37.3; O2SAT 95–100
[2024-12-18] MEDS: OXYTOCIN 30 UNITS/NS 500 ML 30 UNITS/500 ML BAG IV CONT (04:20)
[2024-12-18] MEDS: LACTATED RINGERS 1,000 ML 125 ML IV CONT (04:20)
--- NOTE | 2024-12-18 08:32 | PM.OBPNVD ---
OB - PN: Subj Subjective Date/time seen: 12/18/24 08:32 reassuring status, 4 cm, active management of labor. OB - PN: Obj Data Labs 12/17/24 12:38 Labs: Laboratory Results - last 24 hr 12/17/24 12:38 WBC 10.2 H RBC 4.16 L Hgb 12.6 Hct 37.4 MCV 89.9 MCH 30.3 MCHC 33.7 RDW 12.9 Plt Count 197 MPV 11.0 H Immature Gran % (Auto) 0.5 Neut % (Auto) 79.9 H Lymph % (Auto) 14.5 L [place] % (Auto) 4.1 Eos % (Auto) 0.8 Baso % (Auto) 0.2 Lymph # (Auto) 1.47 [place] # (Auto) 0.4 Eos # (Auto) 0.1 Baso # (Auto) 0.0 Abs Immat Gran (auto) 0.05 H Absolute Neuts (auto) 8.1 H Absolute Nucleated RBC 0.000 Nucleated RBC % 0.0 Syphilis IgG/IgM Ab Non-reactive Blood Type AB Positive Antibody Screen Negative OB - PN A/P Time Spent With Patient Time: Total time spent is greater than 50% in coordination of care (as documented) at patient's floor/unit and/or counseling patient:
--- NOTE | 2024-12-18 08:57 | PM.OBPNLAB ---
Pain Control Date/time seen: 12/18/24 08:57 Comments: SVE /0 AROM clear fluid. anticipate vaginal delivery
--- NOTE | 2024-12-18 09:35 | PM.OBPRVD ---
OB - Vaginal Delivery Note Procedure Delivery date: 12/18/24 Events: Preeclampsia w/o severe features Induction method: AROM, Per Misoprostol Protocol and Per Pitocin Protocol Delivery monitor: External FHT and External Uterine Route of delivery: Episiotomy description: None Laceration Description: Labial (right) Delivery repair: vicryl Specimen: No Quantitative Blood Loss (ml): 275 Anesthesia type: Epidural Disposition: Floor Complications: No immediate complications [place] Baby Date of : 12/18/24 Time of : 09:23 Gestational Age by Date: 38 Infant gender: Male presentation: vertex position: Left Occiput Anterior Placenta delivery description: Spontaneous Cord Vessel Description: 3 Vessels, Clamped/Cut and Delayed Cord Clamping score one minute: 9 score five minutes: 9
[2024-12-18] MEDS: OXYTOCIN 30 UNITS/NS 500 ML 30 UNITS/500 ML BAG 125 UNITS IV CONT (10:04)
[2024-12-18] MEDS: BENZOCAINE 20% AER SPR (*SP) 56 GM CAN 1 SPRAY TOPICAL (11:58)
[2024-12-18] MEDS: WITCH HAZEL 40 PADS 1 PAD TOPICAL (11:58)
--- NOTE | 2024-12-18 12:35 | OBPPTRN ---
Patient transferred to post room #276 via wheelchair. Support person present. Oriented to unit, room, information board, rooming in, admission packet and security measures. Patient verbalizes understanding.
--- NOTE | 2024-12-18 14:40 | PC.NURSE ---
Introductions were made, then consulted with patient to assess needs related to , she had requested assistance with latching and the Primary RN was in the room and was able to get baby to latch. CLC RN encouraged understanding of the benefits of skin to skin (demonstrating unwrapping and placing upright on her chest), stimulating with massage touch, changing positions to encourage wakefulness, how to watch for early feeding cues, responsive feeding, feeding on demand (aiming for 8-12 times in 24 hours, about every 2-3 hours), milk production, building/maintaining a milk supply, duration of feeding, signs of adequate intake/output and how to record on the feeding sheet. Mother works well with her with encouragement and education. Reviewed positioning and ear, shoulder, hip alignment, supporting the breast to facilitate a deep latch, asymmetrical latch (off-center), leading with the chin with a big, open, wide gape and body close to mother. Infant was able to latch optimally to the [left] breast in [cross cradle] position. Education given to the mother of how to visualize the suckling (with good rocking jaw motion), swallows (dropping of the lower jaw) and how to listen for drinking at the breast (the ka sound). Infant was [able] to maintain latch without pain to mother protecting the nipple with optimal positioning and latching, mother and CLC heard many swallows. Reviewed comfort measures of healing with a warm, wet washcloth to rinse breast, then leave open to air-dry, good handwashing when or touching the breast/nipples to prevent infection. Mother voiced understanding of skin to skin, stimulating with massage touch, responsive feedings, hand expressed colostrum, talking to infant to encourage if it has been 2 -2.5 hours since the start of the last , to call if does not latch, or if there is discomfort with . Resources used for education were facilitated with the [visual educational handouts/ tool/mom and baby guide], Inpatient/outpatient resources provided with business card, feeding sheet, name written on the communication board, and the mom/baby guide. Parents voiced understanding of information, demonstrated learning and will call if there is a request for assistance. Reported to the Primary RN.
[2024-12-18] MEDS: IBUPROFEN 600 MG TABLET PO (18:02)
[2024-12-18] MEDS: DOCUSATE SODIUM 100 MG CAPSULE PO (18:02)
[2024-12-18] MEDS: ACETAMINOPHEN 325 MG TABLET 650 MG PO (20:18)
[2024-12-19] VITALS (7 sets, daily range): BP systolic 116–132; BP diastolic 67–86; PULSE 57–75; RESP 14–18; TEMP 36.5–36.8; O2SAT 99–100
[2024-12-19 05:32] LABS: Hematocrit 32.8 % (37.0-47.0); Hemoglobin 10.8 g/dL (12.0-15.0)
--- NOTE | 2024-12-19 07:45 | WPDANLDPN2 ---
Anes-Prog Note L&D Date/Time: 12/19/24 07:45 Comfortable throughout: labor and delivery Neuraxial method: epidural Epidural/Spinal procedure site: clean & non-tender Neuro status: Neuro function grossly intact. Cardiovascular status: normal Respiratory status: normal Airway patency: baseline Mental status: baseline Vital Signs: Last Vital Signs Temp 36.5 C 12/19/24 04:00 Pulse 63 12/19/24 04:00 Resp 14 12/19/24 04:00 BP 127/82 12/19/24 04:00 Pulse Ox 99 12/19/24 04:00 O2 Del Method Room Air 12/18/24 16:00 Pain score (VAS): 0 I/O: Intake & Output 12/18/24 12/18/24 12/19/24 15:59 23:59 07:59 Intake Total 500 1100 Output Total 55 900 Balance 445 200 Patient feedback: Patient satisfied with anesthetic care.
[2024-12-19] MEDS: DOCUSATE SODIUM 100 MG CAPSULE PO ×2 (09:37→16:55)
[2024-12-19] MEDS: MULTIVIT/MIN/PREN/FOL AC/IRON TABLET 1 TAB PO (09:37)
[2024-12-19] MEDS: IBUPROFEN 600 MG TABLET PO ×2 (09:37→23:55)
--- NOTE | 2024-12-19 10:51 | P.PNOB_ITS ---
OB - PN: Subj Subjective Date/time seen: 12/19/24 10:51 Interval history: PPD#1 Doing well, pain controlled Asymptomatic Voiding without issue BP well controlled Working on OB - PN: Obj Data Labs 12/19/24 03:46 Labs: Laboratory Results - last 24 hr 12/19/24 03:46 Hgb 10.8 L Hct 32.8 L OB - PN A/P Assessment and Plan (1) Gestational hypertension: Code(s): O13.9 - Gestational [-induced] hypertension without significant proteinuria, unspecified trimester Status: Acute (2) (spontaneous vaginal delivery): Code(s): O80 - Encounter for full-term uncomplicated delivery Status: Acute Plan day: 1 Plan: routine care Time Spent With Patient Time: Total time spent is greater than 50% in coordination of care (as documented) at patient's floor/unit and/or counseling patient: Review of Systems 2 Review of Systems: All systems reviewed & are unremarkable except as noted in HPI and below Exam 2 Const: General: comfortable and no acute distress O rientation/consciousness: patient oriented x3 Resp: Effort & Inspection: normal respiratory effort
[2024-12-19] MEDS: ACETAMINOPHEN 325 MG TABLET 650 MG PO (16:55)
[2024-12-20 04:00] VITALS: BP 122/77; PULSE 72
[2024-12-20] MEDS: DOCUSATE SODIUM 100 MG CAPSULE PO (08:32)
[2024-12-20] MEDS: IBUPROFEN 600 MG TABLET PO (08:32)
[2024-12-20] MEDS: MULTIVIT/MIN/PREN/FOL AC/IRON TABLET 1 TAB PO (08:32)
[2024-12-20 08:37] VITALS: BP 138/88; PULSE 76; RESP 19; TEMP 36.3; O2SAT 100
--- NOTE | 2024-12-20 09:49 | P.PNOB_ITS ---
OB - PN: Subj Subjective Date/time seen: 12/20/24 09:49 Interval history: PPD#2 Doing well, pain controlled Asymptomatic Voiding without issue BP well controlled Working on OB - PN: Obj Data Labs 12/19/24 03:46 OB - PN A/P Plan day: 2 Plan: routine care and discharge home Time Spent With Patient Time: Total time spent is greater than 50% in coordination of care (as documented) at patient's floor/unit and/or counseling patient: Review of Systems 2 Review of Systems: All systems reviewed & are unremarkable except as noted in HPI and below Exam 2 Const: General: cooperative, healthy appearing and comfortable Resp: Effort & Inspection: normal respiratory effort Cardio: Rate: regular rate Back/Spine/Pelvis: Back: no CVA tenderness Skin: General skin exam: normal color
--- NOTE | 2024-12-20 09:51 | P.DS_ITS ---
DS: Admitting Diagnosis Discharge Date 12/20/24 Admitting Diagnosis IOL, gestational HTN DS: Discharge Diagnosis Discharge Diagnosis (1) (spontaneous vaginal delivery): Code(s): O80 - Encounter for full-term uncomplicated delivery Status: Acute OB - DS: Summary OB Procedures : None OB Procedures Intrapartum: Spontaneous Vag Delivery OB Procedures: : None Peripartum Data Laceration Description: Labial (right) Episiotomy description: None Time Spent with Patient Time attestation: Total time spent providing and/or coordinating discharge services: Discharge Plan Discharge Attending physician on discharge: Morgan Sosa Discharging Clinician: Lupe Romeo Patient Disposition: Home Activity: pelvic rest Diet: regular Patient Instructions: Antibiotic Form Patient Language: Armenian Stand Alone Forms: General Discharge Information Follow-up/Referrals: Morgan Sosa MD [Physician] - (ayanna or 4 weeks pp) Discharge Medications: Continued vit-ferrous sulfat-FA 27 mg iron- 0.8 mg tablet 1 tablet PO DAILY ferrous sulfate [Deo-Time] 325 mg (65 mg iron) tablet 325 mg PO BID Date of admission: 12/17/24 12:07 Primary Care Provider: Flakita,Gm Christian Admitting Provider: Morgan Sosa Attending physician on admission: Morgan Sosa Condition: Stable
--- NOTE | 2024-12-20 10:30 | PC.NURSE ---
Introductions were made, then consulted with patient to assess needs related to . Mother verbalizes she is able to independently latch infant with appropriate positioning and alignment. She denies any nipple discomfort and is responsively . Infant is currently meeting outcomes for weight, output, jaundice, blood sugar and feeding frequencies of 8-12 times in 24 hours. Mother declines any additional assistance or education at this time. Latch observed by this RN. in football position on the left breast, several swallows noted during observation. Mother is encouraged to call for assistance if her doesn?t latch, pain with latching, questions or concerns. Mother voiced understanding of information shared along with the mom/baby guide for an additional resource. Reported to the Primary RN.
[2024-12-20 12:00] VITALS: BP 133/87; PULSE 77; RESP 18; TEMP 36.6; O2SAT 100
[2024-12-22 15:03] VITALS: BP 119/84; PULSE 92; RESP 18; TEMP 36.6; O2SAT 100
== END 2024-12-20 16:50 | disposition home or self-care (01) | DRG 807 ==
LOC: ANHLDR 12:13 → ANHOB2 12-20 09:51 → ANHLDR 12-22 10:39 → ANHOB2 12-22 10:39
PROVIDERS: Admitting Provider Obstetrics & Gynecology; PCP Family Medicine; Visit Provider Advanced Practice Midwife
DX: O13.4 Gestational [pregnancy-induced] hypertension without significant proteinuria, complicating childbirth (principal); Z37.0 Single live birth; O70.0 First degree perineal laceration during delivery; Z3A.38 38 weeks gestation of pregnancy
CPT/HCPCS: 36415; 85014; 85018; 85025; 86593; 86850; 86900; 86901; A9270; J2590; J2795; J7120